=== PATIENT | female | born 1965 | race Caucasian/White ===

== ENCOUNTER → 2016-08-15 | Outpatient (CLI) | payer OTHER ==
[2016-08-15 08:58] LABS: CHLORIDE,CL 106 mmol/L (98-110); SODIUM,NA 141 mmol/L (136-146)
== END | disposition home or self-care (01) ==
LOC: MW.CHIM 08:07
PROVIDERS: ATTEND Internal Medicine
DX: I10 Essential (primary) hypertension (principal); E11.69 Type 2 diabetes mellitus with other specified complication; E78.5 Hyperlipidemia, unspecified
CPT/HCPCS: 36415; 80053; 80061; 83036; 85025

== ENCOUNTER → 2016-08-20 | Outpatient (CLI) | payer OTHER | END | disposition home or self-care (01) | LOC: MW.CHPM 12:22 | PROVIDERS: ATTEND Anesthesiology | DX: Z51.81 Encounter for therapeutic drug level monitoring (principal); Z79.899 Other long term (current) drug therapy | CPT/HCPCS: 80305 ==

== ENCOUNTER 2017-08-21 13:00 | Emergency (ER) | payer OTHER ==
--- NOTE | 2017-08-21 13:34 | EDM.PDOC ---
ED HPI GENERAL MEDICAL PROBLEM - General Chief Complaint: General Stated Complaint: FEELS OFF BALANCE Time Seen by Provider: 08/21/17 13:22 - History of Present Illness INITIAL COMMENTS - FREE TEXT/NARRATIVE: HISTORY AND PHYSICAL: History of present illness: Patient is 52-year-old white female with history of diabetes presents with a concern of not feeling well patient has a variety of nonspecific symptoms that she's had last hydration of similar episodes in the past she denies fever chills cough denies chest pain. Patient has had similar symptoms in the past and was diagnosed with vertigo she has had a complete workup including CT of her brain on multiple occasions. Review of systems: As per history of present illness and below otherwise all systems reviewed and negative. Past medical history: As per history of present illness and as reviewed below otherwise noncontributory. Surgical history: As per history of present illness and as reviewed below otherwise noncontributory. Social history: No reported history of drug or alcohol abuse. Family history: As per history of present illness and as reviewed below otherwise noncontributory. Physical exam: HEENT: Atraumatic, normocephalic, pupils reactive, negative for conjunctival pallor or scleral icterus, mucous membranes moist, throat clear, neck supple, nontender, trachea midline. Lungs: Clear to auscultation, breath sounds equal bilaterally, chest nontender. Heart: S1S2, regular, negative for clicks, rubs, or JVD. Abdomen: Soft, nondistended, nontender. Negative for masses or hepatosplenomegaly. Negative for costovertebral tenderness. Pelvis: Stable nontender. Genitourinary: Deferred. Rectal: Deferred. Extremities: Atraumatic, negative for cords or calf pain. Neurovascular unremarkable. Neuro: Awake, alert, oriented. Cranial nerves II through XII unremarkable. Cerebellum unremarkable. Motor and sensory unremarkable throughout. Exam nonfocal. Diagnostics: CBC CMP EKG chest x-ray Therapeutics: None Impression: #1 history diabetes #2 medical screening exam #3 history of vertigo Definitive disposition and diagnosis as appropriate pending reevaluation and review of above. Headache Pain Score (Numeric/FACES): 10 - Related Data Allergies Allergy/AdvReac Type Severity Reaction Status Date / Time codeine Allergy Nausea Verified 08/21/17 13:37 Sulfa (Sulfonamide Allergy Itching Verified 08/21/17 13:37 Antibiotics) Home Meds: Home Meds Simvastatin [Zocor] 40 mg PO DAILY 12/22/13 [History] metFORMIN [Glucophage] 1,000 mg PO BIDM 12/22/13 [History] Hydrocodone/Acetaminophen [Romayor 5-325] 1 tab PO BID PRN 04/07/14 [History] Valsartan [Diovan] 1 tab PO DAILY 08/25/15 [History] Insulin Glarg,Human.Rec.Analog [LantUS Solostar] 22 units SQ BEDTIME 10/10/15 [ History] Past Medical History Cardiovascular History: Reports: High Cholesterol, Hypertension Gastrointestinal History: Reports: GERD 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 ED EXAM, GENERAL - Physical Exam Exam: See Below (See dictation) Course - Vital Signs Last Recorded V/S: Last Vital Signs Temp 36.7 C 08/21/17 13:34 Pulse 79 08/21/17 13:34 Resp 18 08/21/17 13:34 BP 128/87 08/21/17 13:34 Pulse Ox 98 08/21/17 13:34 - Orders/Labs/Meds Orders: Active Orders 24 hr Category Date Time Status EKG Documentation Completion [RC] STAT Care 08/21/17 13:26 Active Chest 1V Frontal [CR] Stat Exams 08/21/17 13:27 Taken Labs: Laboratory Tests 08/21/17 08/21/17 Range/Units 13:37 13:37 WBC 6.69 (4.0-11.0) K/uL RBC 4.48 (4.30-5.90) M/uL Hgb 13.9 (12.0-16.0) g/dL Hct 41.4 (36.0-46.0) % MCV 92.4 (80.0-98.0) fL MCH 31.0 (27.0-32.0) pg MCHC 33.6 (31.0-37.0) g/dL RDW Std Deviation 50.2 (28.0-62.0) fl RDW Coeff of Vlad 15 (11.0-15.0) % Plt Count 316 (150-400) K/uL MPV 9.50 (7.40-12.00) fL Neut % (Auto) 69.4 (48.0-80.0) % Lymph % (Auto) 20.2 (16.0-40.0) % [place] % (Auto) 6.4 (0.0-15.0) % Eos % (Auto) 3.9 (0.0-7.0) % Baso % (Auto) 0.1 (0.0-1.5) % Neut # (Auto) 4.6 (1.4-5.7) K/uL Lymph # (Auto) 1.4 (0.6-2.4) K/uL [place] # (Auto) 0.4 (0.0-0.8) K/uL Eos # (Auto) 0.3 (0.0-0.7) K/uL Baso # (Auto) 0.0 (0.0-0.1) K/uL Nucleated RBC % 0.0 /100WBC Nucleated RBCs # 0 K/uL Sodium 142 (136-145) mmol/L Potassium 4.3 (3.5-5.1) mmol/L Chloride 107 (98-107) mmol/L Carbon Dioxide 25.1 (21.0-32.0) mmol/L BUN 17 (7.0-18.0) mg/dL Creatinine 0.7 (0.6-1.0) mg/dL Est Cr Clr Drug Dosing 76.00 mL/min Estimated GFR (MDRD) > 60.0 ml/min Glucose 94 (74-106) mg/dL Calcium 9.5 (8.5-10.1) mg/dL Total Bilirubin 0.9 (0.2-1.0) mg/dL AST 20 (15-37) IU/L ALT 37 (14-63) IU/L Alkaline Phosphatase 55 (46-116) U/L Troponin I < 0.050 (0.000-0.056) ng/mL Total Protein 7.0 (6.4-8.2) g/dL Albumin 3.7 (3.4-5.0) g/dL Globulin 3.3 (2.0-3.5) g/dL Albumin/Globulin Ratio 1.1 L (1.3-2.8) Departure - Departure Time of Disposition: 14:29 Disposition: Home, Self-Care 01 Condition: Good Clinical Impression: Encounter for medical screening examination, History of vertigo - Discharge Information Referrals: PCP,Unknown [Primary Care Provider] - Forms: ED Department Discharge Additional Instructions: The following information is given to patients seen in the emergency department who are being discharged to home. This information is to outline your options for follow-up care. We provide all patients seen in our emergency department with a follow-up referral. The need for follow-up, as well as the timing and circumstances, are variable depending upon the specifics of your emergency department visit. If you don't have a primary care physician on staff, we will provide you with a referral. We always advise you to contact your personal physician following an emergency department visit to inform them of the circumstance of the visit and for follow-up with them and/or the need for any referrals to a consulting specialist. The emergency department will also refer you to a specialist when appropriate. This referral assures that you have the opportunity for followup care with a specialist. All of these measure are taken in an effort to provide you with optimal care, which includes your followup. Under all circumstances we always encourage you to contact your private physician who remains a resource for coordinating your care. When calling for followup care, please make the office aware that this follow-up is from your recent emergency room visit. If for any reason you are refused follow-up, please contact the [facility] emergency department at and asked to speak to the emergency department charge nurse. Meclizine as prescribed continue current medications follow-up primary medical doctor call to schedule appointment and return as needed as discussed - My Orders Last 24 Hours: My Active Orders 08/21/17 13:26 EKG Documentation Completion [RC] STAT 08/21/17 13:27 Chest 1V Frontal [CR] Stat - Assessment/Plan Last 24 Hours: My Active Orders 08/21/17 13:26 EKG Documentation Completion [RC] STAT 08/21/17 13:27 Chest 1V Frontal [CR] Stat
[2017-08-21 14:15] LABS: CHLORIDE,CL 107 mmol/L (98-107); SODIUM,NA 142 mmol/L (136-145)
[2017-08-21 14:59] VITALS: BP 116/73
--- NOTE | 2017-08-22 10:26 | CR ---
EXAM DATE: 08/21/17 PATIENT'S AGE: 52 Patient: ELENI VASQUEZ Facility: [place], [place] Site . Site : [id number] Study: XRay Chest [id number] 2:19:12 PM Ordering Physician: Francesco Maldonado Final Report: Indication: Patient feels off balance Technique: Chest 1 view Comparison: May 17, 2014 Findings/Impression: Cardiovascular and mediastinum: Heart size and vasculature are normal in caliber and appearance. Mediastinum is within normal limits. Lungs and pleural space: Lungs are clear. No sign of infiltrate or mass. No sign of pleural effusion. No pneumothorax. Bones and soft tissues: No significant findings. Dictated by Chiara Trevino MD @ Aug 21 2017 2:35PM (Electronic Signature) Report Signed by Proxy. FAMILIA
== END 2017-08-21 14:56 | disposition home or self-care (01) ==
LOC: MW.ED 13:00
DX: R51 Headache (principal); E78.00 Pure hypercholesterolemia, unspecified; I10 Essential (primary) hypertension; E11.9 Type 2 diabetes mellitus without complications; Z88.5 Allergy status to narcotic agent; Z88.2 Allergy status to sulfonamides; Z79.899 Other long term (current) drug therapy; Z79.4 Long term (current) use of insulin
CPT/HCPCS: 36415; 71045; 71045-26; 80053; 84484; 85025; 99283; 99284-25

== ENCOUNTER 2019-02-12 12:43 | Emergency (ER) | payer SELFPAY ==
[2019-02-12 12:51] VITALS: BP 174/91; PULSE 83
--- NOTE | 2019-02-12 13:20 | EDM.PDOC ---
ED HPI GENERAL MEDICAL PROBLEM - General Chief Complaint: ENT Problem Stated Complaint: LEFT EAR PAIN Time Seen by Provider: 02/12/19 12:56 Source of Information: Reports: Patient History Limitations: Reports: No Limitations - History of Present Illness INITIAL COMMENTS - FREE TEXT/NARRATIVE: HISTORY AND PHYSICAL: History of present illness: Patient is a 53-year-old female presents to the ED today with concern of left- sided sinus pain and feeling like his backed up into her left ear. Patient states the symptoms have been ongoing for 2 weeks. Patient states she has a history of vertigo and noticed that once the sinus backed up into her ear her vertigo has been triggered more frequently. Patient states she has not taken anything for her symptoms. Patient states she has had a sinus infection in the past which feels similar to how she feels today. Patient denies any other symptoms or concerns. Patient denies fever, chills, chest pain, shortness of breath, or cough. Denies headache, neck stiff ness, change in vision, syncope, or near syncope. Denies nausea, vomiting, abdominal pain, diarrhea, constipation, or dysuria. Has not noted any blood in urine or stool. Patient has been eating and drinking appropriately. Review of systems: As per history of present illness and below otherwise all systems reviewed and negative. Past medical history: As per history of present illness and as reviewed below otherwise noncontributory. Surgical history: As per history of present illness and as reviewed below otherwise noncontributory. Social history: See social history for further information Family history: As per history of present illness and as reviewed below otherwise noncontributory. Physical exam: General: Patient is alert, oriented, and in no acute distress. Patient sitting comfortably on exam table. HEENT: Atraumatic, normocephalic, pupils equal and reactive bilaterally, negative for conjunctival pallor or scleral icterus, mucous membranes moist, TMs normal bilaterally, throat clear, neck supple, nontender, trachea midline. No drooling or trismus noted. No meningeal signs. No hot potato voice noted. Patient has moderate pain with palpation of the left maxillary sinus. Lungs: Clear to auscultation, breath sounds equal bilaterally, chest nontender. Heart: S1S2, regular rate and rhythm without overt murmur Abdomen: Soft, nondistended, nontender. Negative for masses or hepatosplenomegaly. Negative for costovertebral tenderness. Pelvis: Stable nontender. Genitourinary: Deferred. Rectal: Deferred. Skin: Intact, warm, dry. No lesions or rashes noted. Extremities: Atraumatic, negative for cords or calf pain. Neurovascular unremarkable. Neuro: Awake, alert, oriented. Cranial nerves II through XII unremarkable. Cerebellum unremarkable. Motor and sensory unremarkable throughout. Exam nonfocal. Notes: Discussed the importance for follow-up with a primary care provider. Voices understanding and is agreeable to plan of care. Denies any further questions or concerns at this time. Diagnostics: None Therapeutics: None Prescription: Augmentin Impression: Acute maxillary sinusitis, left Plan: 1. Take medication as prescribed. Use [id number] Flonase as discussed and as directed. 2. You can alternate ibuprofen and Tylenol as directed for pain and discomfort. 3. Follow up with her primary care provider as discussed. Return to the ED as needed and as discussed. Definitive disposition and diagnosis as appropriate pending reevaluation and review of above. 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: Endocrine/Metabolic History: Reports: Diabetes, Type II - Infectious Disease History Infectious Disease History: Reports: Chicken Pox, Measles, Mumps - Past Surgical History HEENT Surgical History: Reports: Tonsillectomy Other HEENT Surgeries/Procedures: nasal surgery x2 GI Surgical History: Reports: Cholecystectomy, Hernia Repair/Other Female Surgical History: Reports: Hysterectomy Other Musculoskeletal Surgeries/Procedures:: carpal tunnel surgery Social & Family History - Family History Family Medical History: Noncontributory - Tobacco Use Smoking Status *Q: Unknown Ever Smoked - Recreational Drug Use Recreational Drug Use: No ED ROS GENERAL - Review of Systems Review Of Systems: ROS reveals no pertinent complaints other than HPI. ED EXAM, GENERAL - Physical Exam Exam: See Below (See dictation) Course - Vital Signs Last Recorded V/S: Last Vital Signs Temp 35.6 C 02/12/19 12:49 Pulse 83 02/12/19 12:49 Resp 18 02/12/19 12:49 BP 174/91 H 02/12/19 12:49 Pulse Ox 99 02/12/19 12:49 Departure - Departure Time of Disposition: 13:20 Disposition: Home, Self-Care 01 Clinical Impression: Maxillary sinusitis, acute Qualifiers: Recurrence: not specified as recurrent Qualified Code(s): J01.00 - Acute maxillary sinusitis, unspecified - Discharge Information Prescriptions: Amoxicillin/Potassium Clav [Augmentin 875-125 Tablet] 1 each PO BID 7 Days #14 tablet Referrals: Tyson Leavitt MD [Primary Care Provider] - Forms: ED Department Discharge Additional Instructions: The following information is given to patients seen in the emergency department who are being discharged to home. This information is to outline your options for follow-up care. We provide all patients seen in our emergency department with a follow-up referral. The need for follow-up, as well as the timing and circumstances, are variable depending upon the specifics of your emergency department visit. If you don't have a primary care physician on staff, we will provide you with a referral. We always advise you to contact your personal physician following an emergency department visit to inform them of the circumstance of the visit and for follow-up with them and/or the need for any referrals to a consulting specialist. The emergency department will also refer you to a specialist when appropriate. This referral assures that you have the opportunity for follow-up care with a specialist. All of these measure are taken in an effort to provide you with optimal care, which includes your follow-up. Under all circumstances we always encourage you to contact your private physician who remains a resource for coordinating your care. When calling for follow-up care, please make the office aware that this follow-up is from your recent emergency room visit. If for any reason you are refused follow-up, please contact the [facility] Emergency Department at and asked to speak to the emergency department charge nurse. [facility] [address] [place] [address] [facility] [address] [place] [address] 1. Take medication as prescribed. Use [id number] Flonase as discussed and as directed. 2. You can alternate ibuprofen and Tylenol as directed for pain and discomfort. 3. Follow up with her primary care provider as discussed. Return to the ED as needed and as discussed.
== END 2019-02-12 13:45 | disposition home or self-care (01) ==
LOC: MW.ED 12:43
DX: J01.00 Acute maxillary sinusitis, unspecified (principal); E11.9 Type 2 diabetes mellitus without complications; I10 Essential (primary) hypertension; Z88.5 Allergy status to narcotic agent; Z88.2 Allergy status to sulfonamides; Z79.84 Long term (current) use of oral hypoglycemic drugs; Z79.899 Other long term (current) drug therapy; Z98.890 Other specified postprocedural states; Z90.49 Acquired absence of other specified parts of digestive tract; Z90.710 Acquired absence of both cervix and uterus
CPT/HCPCS: 99282; 99283

== ENCOUNTER 2019-12-20 22:13 | Emergency (ER) | payer OTHER ==
[2019-12-20] MEDS ORDERED: Sodium Chloride 0.9% 2.5 ML Syringe FLUSH PRN (22:38)
[2019-12-20] MEDS ORDERED: Sodium Chloride 0.9% 10 ML Syringe FLUSH PRN (22:38)
[2019-12-20] MEDS ORDERED: Sodium Chloride 0.9% 1,000 ML IV ONE (22:41)
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
[2019-12-20] MEDS ORDERED: Ondansetron 4 MG/2 ML SDV IVPUSH ONE (22:46)
[2019-12-20] MEDS ORDERED: fentaNYL 50 MCG/ML SDV IVPUSH ONE (22:46)
[2019-12-20 23:30] LABS: CARBON DIOXIDE,CO2 26.8 mmol/L (21.0-32.0); POTASSIUM,K 4.4 mmol/L (3.5-5.1)
[2019-12-21] MEDS ORDERED: Iopamidol 755 Mg/ML 100 ML Bottle IVPUSH ONE (00:03)
--- NOTE | 2019-12-21 00:50 | CT ---
INDICATION: Right lower quadrant pain TECHNIQUE: Axial images were obtained from the diaphragm to the pubic symphysis. Reformats were obtained in the coronal and sagittal plane. IV Contrast: 100 cc Isovue 370 Oral Contrast: None COMPARISON: Abdomen and pelvis CT 02/09/2014 FINDINGS: Lower chest: Right middle lobe pulmonary nodule measuring 3 millimeters (201, 4). In a high-risk patient, follow-up chest CT recommended in 12 months. Stable 3 millimeter right lower lobe pulmonary nodule. Liver: Unremarkable. Normal in size and attenuation. No masses. Gallbladder and bile ducts: Gallbladder is not seen suggesting prior cholecystectomy. Spleen: Unremarkable. Normal in size without mass. Pancreas: 7 millimeter low-density lesion at the pancreatic head which measures near water density (201, 50). Adrenal glands: Unremarkable. No nodules. Kidneys: Unremarkable. No masses, stones, or hydronephrosis. Vasculature: Unremarkable. GI tract: No dilated loops of large or small intestine. Unremarkable appendix. Pelvis: Bladder unremarkable. Status post hysterectomy. No adnexal mass. Bones: Slight decreased height of the L1 vertebral body consistent with an old compression fracture. Mild degenerative disc disease lumbar spine. IMPRESSION: 1. No dilated bowel or localized inflammation. Unremarkable appendix. 2. Low-density lesion in the pancreatic head measuring 7 millimeters. Appearance would favor a lesion such as a pancreatic cyst or side branch IPMN. Follow-up CT scan in 12 months suggested. 3. Other incidental findings as detailed above. Please note that all CT scans at this facility use dose modulation, iterative reconstruction, and/or weight-based dosing when appropriate to reduce radiation dose to as low as reasonably achievable. Dictated by Pavan Dudley MD @ Dec 21 2019 12:34AM Signed by Dr. Pavan Dudley @ Dec 21 2019 12:49AM
[2019-12-21 01:17] VITALS: BP 150/77; PULSE 80
== END 2019-12-21 01:16 | disposition home or self-care (01) ==
LOC: MW.ED 22:13
DX: R10.31 Right lower quadrant pain (principal); K21.9 Gastro-esophageal reflux disease without esophagitis; E11.9 Type 2 diabetes mellitus without complications; I10 Essential (primary) hypertension; F17.210 Nicotine dependence, cigarettes, uncomplicated; Z79.84 Long term (current) use of oral hypoglycemic drugs; Z88.5 Allergy status to narcotic agent; Z88.2 Allergy status to sulfonamides; Z79.899 Other long term (current) drug therapy
CPT/HCPCS: 36415; 74177; 80053; 81001; 83605; 83690; 85025; 96374; 96375; 99284; J2405; J3010; J7030; Q9967; 99283

== ENCOUNTER 2020-01-02 14:13 | Emergency (ER) | payer OTHER ==
--- NOTE | 2020-01-02 14:29 | EDM.PDOC ---
ED HPI GENERAL MEDICAL PROBLEM - General Chief Complaint: General Stated Complaint: HEAD AND NECK SORE Time Seen by Provider: 01/02/20 14:17 Source of Information: Reports: Patient History Limitations: Reports: No Limitations - History of Present Illness INITIAL COMMENTS - FREE TEXT/NARRATIVE: 54 yo F with history of diabetes, GERD woke up at 430 this morning with right- sided neck pain that radiates to the right scalp. Neck pain is worse with head turning, is constant, radiates to the right temporal scalp, neck pain is rated 10/10. Headache is rated 3/10. Associated with nausea, anterior chest "burning "for 1 hour. She denies fever, chills, vomiting, shortness of breath. She also notes abdominal pain which she attributes to her nausea. ROS: A 10-point review of systems, other than pertinent positives and negatives as stated per HPI, is otherwise negative Past medical history: No additional pertinent history Past Surgical history: No additional pertinent history Social history: No additional pertinent history Family history: No additional pertinent history PHYSICAL EXAM General: AOx4, GCS = 15, moderate distress HEENT: dry mucous membrane Neck: supple, no meningismus, no Kernig or Brudzinski Cardiac: S1S2 RRR Respiratory: CTAB, no crackles or rales, no wheezing Abdomen: Soft, epigastric/suprapubic tenderness/left CVAT. No rebound or guarding, nondistended, no pulsatile mass. Back: nontender to C spine. Right trapezius tender to palpation and spasm. Musculoskeletal: NVI distally, no deformity Neuro: No focal deficits, CN 2 - 12 WNL. head/neck Pain Score (Numeric/FACES): 10 - Related Data Allergies Allergy/AdvReac Type Severity Reaction Status Date / Time codeine Allergy Nausea Verified 01/02/20 14:33 Sulfa (Sulfonamide Allergy Itching Verified 01/02/20 14:33 Antibiotics) sulfur dioxide Allergy Itching Verified 01/02/20 14:33 Home Meds: Home Meds metFORMIN [Glucophage] 1,000 mg PO BIDM 12/22/13 [History] Latanoprost 1 drop DAILY 02/12/19 [History] Meclizine [Antivert] 25 mg PO DAILY 12/20/19 [History] Ibuprofen [Motrin] 800 mg PO QID PRN #30 tab 01/02/20 [Rx] Non-Formulary Medication [NF Drug] 1 each INH BEDTIME 01/02/20 [History] carisoprodoL [Soma] 250 mg PO BID #10 tablet 01/02/20 [Rx] Past Medical History HEENT History: Reports: Glaucoma, Impaired Vision, Other (See Below) Other HEENT History: wears glasses Cardiovascular History: Reports: High Cholesterol, Hypertension Gastrointestinal History: Reports: GERD Genitourinary History: Reports: None [employer]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: Musculoskeletal History: Reports: Back Pain, Chronic Psychiatric History: Reports: Depression Endocrine/Metabolic History: Reports: Diabetes, Type II - Infectious Disease History Infectious Disease History: Reports: Chicken Pox, Measles - Past Surgical History HEENT Surgical History: Reports: Tonsillectomy Other HEENT Surgeries/Procedures: nasal surgery x2 Cardiovascular Surgical History: Reports: None GI Surgical History: Reports: Cholecystectomy, Hernia Repair/Other Female Surgical History: Reports: Hysterectomy Endocrine Surgical History: Reports: None Other Musculoskeletal Surgeries/Procedures:: carpal tunnel surgery Social & Family History - Family History Family Medical History: Noncontributory - Caffeine Use Caffeine Use: Reports: Energy Drinks ED ROS GENERAL - Review of Systems Review Of Systems: Comprehensive ROS is negative, except as noted in HPI. ED EXAM, GENERAL - Physical Exam Exam: See Below (see dictation) EKG INTERPRETATION EKG Interpretation Comments: 55 Bpm, NSR, normal QRS interval, no STEMI. EKG and rhythm strip interpreted by me at 1506 Course - Vital Signs Last Recorded V/S: Last Vital Signs Temp 98.3 F 01/02/20 14:32 Pulse 80 01/02/20 16:55 Resp 16 01/02/20 16:55 BP 147/88 H 01/02/20 16:55 Pulse Ox 96 01/02/20 16:55 - Orders/Labs/Meds Orders: Active Orders 24 hr Category Date Time Status Cardiac Monitoring [RC] . DIRECTED Care 01/02/20 14:51 Active EKG Documentation Completion [RC] STAT Care 01/02/20 14:52 Active Sodium Chloride 0.9% [Saline Flush] Med 01/02/20 14:51 Active 10 ml FLUSH ASDIRECTED PRN Sodium Chloride 0.9% [Saline Flush] Med 01/02/20 14:51 Active 2.5 ml FLUSH ASDIRECTED PRN Saline Lock Insert [OM.PC] Stat Oth 01/02/20 14:51 Ordered Medication Orders Sodium Chloride (Saline Flush) 10 ml FLUSH ASDIRECTED PRN PRN Reason: Keep Vein Open Last Admin: 01/02/20 15:16 Dose: 10 ml Documented by: LINDSAY Sodium Chloride (Saline Flush) 2.5 ml FLUSH ASDIRECTED PRN PRN Reason: Keep Vein Open Last Admin: 01/02/20 15:16 Dose: 2.5 ml Documented by: LINDSAY Labs: Laboratory Tests 01/02/20 01/02/20 01/02/20 Range/Units 15:10 15:10 15:10 WBC 9.14 (4.0-11.0) K/uL RBC 4.09 L (4.30-5.90) M/uL Hgb 12.7 (12.0-16.0) g/dL Hct 38.5 (36.0-46.0) % MCV 94.1 (80.0-98.0) fL MCH 31.1 (27.0-32.0) pg MCHC 33.0 (31.0-37.0) g/dL RDW Std Deviation 45.8 (28.0-62.0) fl RDW Coeff of Vlad 13 (11.0-15.0) % Plt Count 220 (150-400) K/uL MPV 10.00 (7.40-12.00) fL Neut % (Auto) 83.5 H (48.0-80.0) % Lymph % (Auto) 8.2 L (16.0-40.0) % [place] % (Auto) 7.2 (0.0-15.0) % Eos % (Auto) 0.9 (0.0-7.0) % Baso % (Auto) 0.2 (0.0-1.5) % Neut # (Auto) 7.6 H (1.4-5.7) K/uL Lymph # (Auto) 0.8 (0.6-2.4) K/uL [place] # (Auto) 0.7 (0.0-0.8) K/uL Eos # (Auto) 0.1 (0.0-0.7) K/uL Baso # (Auto) 0.0 (0.0-0.1) K/uL Nucleated RBC % 0.0 /100WBC Nucleated RBCs # 0 K/uL APTT (18.6-31.3) SEC Lactate 1.1 (0.20-2.00) mmol/L Sodium 136 (136-145) mmol/L Potassium 3.7 (3.5-5.1) mmol/L Chloride 102 (98-107) mmol/L Carbon Dioxide 23.7 (21.0-32.0) mmol/L BUN 16 (7.0-18.0) mg/dL Creatinine 0.9 (0.6-1.0) mg/dL Est Cr Clr Drug Dosing 55.20 mL/min Estimated GFR (MDRD) > 60.0 ml/min Glucose 113 H (74-106) mg/dL Calcium 8.5 (8.5-10.1) mg/dL Total Bilirubin 1.3 H (0.2-1.0) mg/dL AST 16 (15-37) IU/L ALT 22 (14-63) IU/L Alkaline Phosphatase 69 (46-116) U/L Troponin I < 0.050 (0.000-0.056) ng/mL Total Protein 7.1 (6.4-8.2) g/dL Albumin 3.7 (3.4-5.0) g/dL Globulin 3.4 (2.6-4.0) g/dL Albumin/Globulin Ratio 1.1 (0.9-1.6) Lipase 114 (73-393) U/L Urine Color Urine Appearance Urine pH (5.0-8.0) Ur Specific [place] (1.001-1.035) Urine Protein (NEGATIVE) mg/dL Urine Glucose (UA) (NEGATIVE) mg/dL Urine Ketones (NEGATIVE) mg/dL Urine Occult Blood (NEGATIVE) Urine Nitrite (NEGATIVE) Urine Bilirubin (NEGATIVE) Urine Urobilinogen (<2.0) EU/dL Ur Leukocyte Esterase (NEGATIVE) Urine RBC (0-2/HPF) Urine WBC (0-5/HPF) Ur Epithelial Cells (NONE-FEW) Urine Bacteria (NEGATIVE) 01/02/20 01/02/20 Range/Units 15:10 16:39 WBC (4.0-11.0) K/uL RBC (4.30-5.90) M/uL Hgb (12.0-16.0) g/dL Hct (36.0-46.0) % MCV (80.0-98.0) fL MCH (27.0-32.0) pg MCHC (31.0-37.0) g/dL RDW Std Deviation (28.0-62.0) fl RDW Coeff of Vlad (11.0-15.0) % Plt Count (150-400) K/uL MPV (7.40-12.00) fL Neut % (Auto) (48.0-80.0) % Lymph % (Auto) (16.0-40.0) % [place] % (Auto) (0.0-15.0) % Eos % (Auto) (0.0-7.0) % Baso % (Auto) (0.0-1.5) % Neut # (Auto) (1.4-5.7) K/uL Lymph # (Auto) (0.6-2.4) K/uL [place] # (Auto) (0.0-0.8) K/uL Eos # (Auto) (0.0-0.7) K/uL Baso # (Auto) (0.0-0.1) K/uL Nucleated RBC % /100WBC Nucleated RBCs # K/uL APTT 28.0 (18.6-31.3) SEC Lactate (0.20-2.00) mmol/L Sodium (136-145) mmol/L Potassium (3.5-5.1) mmol/L Chloride (98-107) mmol/L Carbon Dioxide (21.0-32.0) mmol/L BUN (7.0-18.0) mg/dL Creatinine (0.6-1.0) mg/dL Est Cr Clr Drug Dosing mL/min Estimated GFR (MDRD) ml/min Glucose (74-106) mg/dL Calcium (8.5-10.1) mg/dL Total Bilirubin (0.2-1.0) mg/dL AST (15-37) IU/L ALT (14-63) IU/L Alkaline Phosphatase (46-116) U/L Troponin I (0.000-0.056) ng/mL Total Protein (6.4-8.2) g/dL Albumin (3.4-5.0) g/dL Globulin (2.6-4.0) g/dL Albumin/Globulin Ratio (0.9-1.6) Lipase (73-393) U/L Urine Color YELLOW Urine Appearance HAZY Urine pH 5.5 (5.0-8.0) Ur Specific [place] 1.015 (1.001-1.035) Urine Protein NEGATIVE (NEGATIVE) mg/dL Urine Glucose (UA) NEGATIVE (NEGATIVE) mg/dL Urine Ketones NEGATIVE (NEGATIVE) mg/dL Urine Occult Blood NEGATIVE (NEGATIVE) Urine Nitrite NEGATIVE (NEGATIVE) Urine Bilirubin NEGATIVE (NEGATIVE) Urine Urobilinogen 0.2 (<2.0) EU/dL Ur Leukocyte Esterase TRACE H (NEGATIVE) Urine RBC 0-2 (0-2/HPF) Urine WBC 0-4 (0-5/HPF) Ur Epithelial Cells RARE (NONE-FEW) Urine Bacteria FEW (NEGATIVE) Meds: Medications Generic Name Dose Route Start Last Admin Trade Name Frediana PRN Reason Stop Dose Admin Sodium Chloride 10 ml 01/02/20 14:51 01/02/20 15:16 Saline Flush FLUSH 10 ml ASDIRECTED PRN Administration Keep Vein Open Sodium Chloride 2.5 ml 01/02/20 14:51 01/02/20 15:16 Saline Flush FLUSH 2.5 ml ASDIRECTED PRN Administration Keep Vein Open Discontinued Medications Generic Name Dose Route Start Last Admin Trade Name Freq PRN Reason Stop Dose Admin Al Hydroxide/Mg Hydroxide 15 0 ml 01/02/20 14:56 01/02/20 15:16 ml/ Lidocaine HCl 5 ml PO 01/02/20 14:57 1 each ONETIME ONE Administration Diphenhydramine HCl 50 mg 01/02/20 14:51 01/02/20 15:14 Benadryl IVPUSH 01/02/20 14:52 50 mg ONETIME ONE Administration Lactated Ringer's 1,000 mls @ 999 mls/hr 01/02/20 14:51 01/02/20 15:10 Ringers, Lactated IV 01/02/20 15:51 999 mls/hr .BOLUS ONE Administration Ketorolac Tromethamine 30 mg 01/02/20 16:38 01/02/20 17:01 Toradol IVPUSH 01/02/20 16:39 30 mg ONETIME ONE Administration Metoclopramide HCl 10 mg 01/02/20 14:51 01/02/20 15:15 Reglan IVPUSH 01/02/20 14:52 10 mg ONETIME ONE Administration - Re-Assessments/Exams Free Text/Narrative Re-Assessment/Exam: 01/02/20 17:34 After IV toradol treatment and observation in the ER, her pain improved and she is currently stable for discharge. I performed a repeat exam and did not appreciate new abnormal findings. Patient exhibits normal vital signs and has a normal gait on road test. I advised the patient to return to the ER for reevaluation if symptoms worsened, including fever, worsening pain, or any other worrisome symptoms. I instructed the patient to follow up with their PCP within 2-3 days. MEDICAL DECISION MAKING: I reviewed the patients past medical records, lab and radiographic findings. I discussed the case with the patient. My differential diagnosis included: Patient's chief complaint is right trapezius pain that radiates to the right scalp. She did mention that she has some chest discomfort and abdominal discomfort and everything hurts. Her EKG and troponin were unremarkable, I do not suspect ACS or atypical chest pain. CAT scan of her abdomen did not reveal any underlying abnormalities. She did not demonstrate pancreatitis or leukocytosis or any signs of infection. She had no focal numbness or weakness on my exam, NIHSS = 0, CT head was unremarkable, I do not suspect underlying intracranial process warranting further imaging studies. Her pain improved after Toradol, consistent for musculoskeletal strain. Departure - Departure Time of Disposition: 17:35 Disposition: Home, Self-Care 01 Condition: Good Clinical Impression: Trapezius muscle spasm - Discharge Information *PRESCRIPTION DRUG MONITORING PROGRAM REVIEWED*: Not Applicable *COPY OF PRESCRIPTION DRUG MONITORING REPORT IN PATIENT SHABNAM: Not Applicable Prescriptions: Ibuprofen [Motrin] 800 mg PO QID PRN #30 tab PRN Reason: Pain (Moderate 4-6) carisoprodoL [Soma] 250 mg PO BID #10 tablet Instructions: Muscle Cramps and Spasms, [id number], Cervicogenic Headache Referrals: Tyson Leavitt MD [Primary Care Provider] - 3 Days Forms: ED Department Discharge Additional Instructions: The need for follow-up, as well as the timing and circumstances, are variable depending upon the specifics of your emergency department visit. If you don't have a primary care physician on staff, we will provide you with a referral. We always advise you to contact your personal physician following an emergency department visit to inform them of the circumstance of the visit and for follow-up with them and/or the need for any referrals to a consulting specialist. The emergency department will also refer you to a specialist when appropriate. This referral assures that you have the opportunity for follow-up care with a specialist. All of these measure are taken in an effort to provide you with optimal care, which includes your follow-up. Under all circumstances we always encourage you to contact your private physician who remains a resource for coordinating your care. When calling for follow-up care, please make the office aware that this follow-up is from your recent emergency room visit. If for any reason you are refused follow-up, please contact the [facility] Emergency Department at and asked to speak to the emergency department charge nurse. If you do not have a primary care doctor, please follow up with the clinics below within 3-5 days. [facility] [address] [place] [id number] [id number] Sepsis Event Note (ED) - Focused Exam Vital Signs: Vital Signs Temp Pulse Resp BP Pulse Ox 01/02/20 16:55 80 16 147/88 H 96 08/01/20 16:06 77 17 134/79 96 01/02/20 14:32 98.3 F 74 17 154/85 H 96 - My Orders Last 24 Hours: My Active Orders 01/02/20 14:51 Cardiac Monitoring [RC] . DIRECTED Sodium Chloride 0.9% [Saline Flush] 10 ml FLUSH ASDIRECTED PRN Sodium Chloride 0.9% [Saline Flush] 2.5 ml FLUSH ASDIRECTED PRN Saline Lock Insert [OM.PC] Stat 01/02/20 14:52 EKG Documentation Completion [RC] STAT - Assessment/Plan Last 24 Hours: My Active Orders 01/02/20 14:51 Cardiac Monitoring [RC] . DIRECTED Sodium Chloride 0.9% [Saline Flush] 10 ml FLUSH ASDIRECTED PRN Sodium Chloride 0.9% [Saline Flush] 2.5 ml FLUSH ASDIRECTED PRN Saline Lock Insert [OM.PC] Stat 01/02/20 14:52 EKG Documentation Completion [RC] STAT
[2020-01-02] MEDS ORDERED: Sodium Chloride 0.9% 2.5 ML Syringe FLUSH PRN (14:51)
[2020-01-02] MEDS ORDERED: Lactated Ringers 1,000 ML IV ONE (14:51)
[2020-01-02] MEDS ORDERED: Metoclopramide 10 MG/2 ML SDV IVPUSH ONE (14:51)
[2020-01-02] MEDS ORDERED: diphenhydrAMINE 50 MG/ML SDV IVPUSH ONE (14:51)
[2020-01-02] MEDS ORDERED: Sodium Chloride 0.9% 10 ML Syringe FLUSH PRN (14:51)
[2020-01-02] MEDS ORDERED: Alum Hydrox/Mag Hydrox/Simeth 15 ML, Lidocaine 2% 5 ML PO ONE ×2 (14:56)
[2020-01-02 15:46] LABS: BLOOD UREA NITROGEN,BUN 16 mg/dL (7.0-18.0); CARBON DIOXIDE,CO2 23.7 mmol/L (21.0-32.0); CHLORIDE,CL 102 mmol/L (98-107); GLUCOSE RANDOM 113 mg/dL (74-106); LIPASE 114 U/L (73-393); POTASSIUM,K 3.7 mmol/L (3.5-5.1); SODIUM,NA 136 mmol/L (136-145)
--- NOTE | 2020-01-02 16:00 | CT ---
INDICATION: Head pain. Patient states that she is not sure if she fell and hit the head last night. COMPARISON: None available. TECHNIQUE: CT examination of the head was performed with 3 mm thick axial, sagittal, and coronal sections without intravenous contrast. Images were obtained from the vertex of the skull through the skull base, and I examined the images with the brain and bone windows. Please note that all CT scans at this facility use dose modulation, iterative reconstruction, and/or weight-based dosing when appropriate to reduce radiation dose to as low as reasonably achievable. FINDINGS: : The brain is normal in appearance for the patient`s age on today`s study, with no sign of mass lesion, mass effect, hemorrhage, or edema. The ventricles and sulci are normal in appearance for the patient`s age. Incidental note is made of a partially empty sella, a common finding in a patient of this age. The visualized portions of the orbits are normal in appearance. The visualized portions of the paranasal sinuses and mastoids are clear. The osseous structures are normal in their appearance with no sign of abnormality in the skull base or calvarium. IMPRESSION: No sign of closed head injury. Normal noncontrast CT of the head for the patient`s age. Please note that all CT scans at this facility use dose modulation, iterative reconstruction, and/or weight-based dosing when appropriate to reduce radiation dose to as low as reasonably achievable. Dictated by Agustin Abarca MD @ Jan 02 2020 3:55PM Signed by Dr. Agustin Abarca @ Jan 02 2020 3:58PM
--- NOTE | 2020-01-02 16:07 | CT ---
TECHNIQUE: Noncontrast CT abdomen and pelvis. INDICATION: Abdominal pain. COMPARISON: 12/20/[address] FINDINGS: The liver, spleen, pancreas, adrenal glands, and kidneys are unremarkable. No bowel obstruction. Gallbladder has been removed. No biliary dilation. The low-density lesion identified in the pancreatic head on the prior exam is poorly visualized today due to lack of IV contrast. Appendix is tucked under the cecum and appears normal. No adenopathy, free air, or free fluid. Previously seen 3 mm lung base nodules are unchanged. IMPRESSION: 1. No acute findings. 2. Previously seen subcentimeter low-attenuation pancreatic head lesion poorly visualized on this exam due to lack of IV contrast. 3. 3 mm pulmonary nodules in the lung bases are unchanged. Dictated by Alfredo Hinton MD @ 01/02/2020 4:05:39 PM Please note that all CT scans at this facility use dose modulation, iterative reconstruction, and/or weight-based dosing when appropriate to reduce radiation dose to as low as reasonably achievable. Dictated by: Alfredo Hinton MD @ 01/02/2020 16:05:47 (Electronically Signed)
[2020-01-02] MEDS ORDERED: Ketorolac 30 MG/ML SDV IVPUSH ONE (16:38)
--- NOTE | 2020-01-02 16:38 | CR ---
INDICATION: Chest pressure TECHNIQUE: Chest 1 view. COMPARISON: None FINDINGS: Heart is normal in size. The pulmonary vasculature is within limits. The lungs are clear. IMPRESSION: No acute process. Dictated by Meera Villavicencio MD @ 01/02/2020 4:37:24 PM Dictated by: Meera Villavicencio MD @ 01/02/2020 16:37:34 (Electronically Signed)
[2020-01-02 16:55] VITALS: BP 147/88; PULSE 80
== END 2020-01-02 17:56 | disposition home or self-care (01) ==
LOC: MW.ED 14:13
DX: M62.838 Other muscle spasm (principal); I10 Essential (primary) hypertension; E11.9 Type 2 diabetes mellitus without complications; Z88.5 Allergy status to narcotic agent; Z88.2 Allergy status to sulfonamides; Z79.84 Long term (current) use of oral hypoglycemic drugs; Z79.899 Other long term (current) drug therapy
CPT/HCPCS: 70450; 71045; 74176; 80053; 81001; 83605; 83690; 84484; 85025; 85730; 93005; 96374; 96375; 99284; A9270; J1200; J1885; J2765; J7120

== ENCOUNTER 2020-04-17 15:03 | Emergency (ER) | payer MEDICAID, OTHER ==
[2020-04-17] MEDS ORDERED: Sodium Chloride 0.9% 1,000 ML IV ONE (15:25)
[2020-04-17] MEDS ORDERED: Ondansetron 4 MG/2 ML SDV IVPUSH ONE (15:44)
--- NOTE | 2020-04-17 15:44 | EDM.PDOC ---
ED HPI GENERAL MEDICAL PROBLEM - General Chief Complaint: Gastrointestinal Problem Stated Complaint: DIARRHEA, POSSIBLE COVID Time Seen by Provider: 04/17/20 15:24 Source of Information: Reports: Patient History Limitations: Reports: No Limitations - History of Present Illness INITIAL COMMENTS - FREE TEXT/NARRATIVE: HISTORY AND PHYSICAL: History of present illness: Patient is a 55-year-old female who presents to the emergency room with concern she may have COVID-19. She states over the past few days she has had nausea, fever/chills, diarrhea and fatigue. She states she works for the [employer] and is frequently exposed to persons who are ill. She has also had several family members who have tested positive for COVID-19. Patient denies any headache, change in vision, syncope or near syncope. Denies any chest pain, back pain, shortness of breath or cough. Denies any vomiting, constipation or dysuria. Has not noted any blood in urine or stool. Patient has been eating and drinking appropriately. She states she is concerned she could be dehydrated as she is "unable to keep up" with the amount of diarrhea she has been having. Review of systems: As per history of present illness and below otherwise all systems reviewed and negative. Past medical history: As per history of present illness and as reviewed below otherwise noncontributory. Surgical history: As per history of present illness and as reviewed below otherwise noncontributory. Social history: See social history for further information Family history: As per history of present illness and as reviewed below otherwise noncontributory. Physical exam: General: Well developed and well nourished 55-year-old female. Alert and orientated x 3. Nontoxic in appearance and in no acute distress. Vital signs are stable and have been reviewed by me. Nursing notes were reviewed. HEENT: Atraumatic, normocephalic, pupils equal and reactive bilaterally, negative for conjunctival pallor or scleral icterus, mucous membranes moist, TMs normal bilaterally, throat clear, neck supple, nontender, trachea midline. No drooling or trismus noted. No meningeal signs. No hot potato voice noted. Lungs: Clear to auscultation, breath sounds equal bilaterally, chest nontender. Normal work of breathing, no accessory muscles used. Heart: S1S2, regular rate and rhythm without overt murmur Abdomen: Soft, nondistended, nontender. Negative for masses or hepatosplenomegaly. Negative for costovertebral tenderness. Skin: Intact, warm, dry. No lesions or rashes noted. Hematologic: No petechiae or purpra. Mucosa appropriate color and normal nail bed color and refill. Extremities: Atraumatic, moves all extremities per self without difficulty or deficits, negative for cords or calf pain. Neurovascular unremarkable. Neuro: Awake, alert, oriented. Cranial nerves II through XII unremarkable. Cerebellum unremarkable. Motor and sensory unremarkable throughout. Exam nonfocal. Psychiatric: Mood and affect are appropriate. Normal thought process. Answering questions appropriately. Notes: Patient's serum lab work is unremarkable. She has an ampule to give us a urine or stool sample. I did offer to keep her here until she was able to give a sample so we could do stool studies/urinalysis. She does not feel she is going to be able to give a sample now prefer to be discharged home. She seems upset that her COVID-19 screening is negative, I did inform her that the send out would be ran by the [facility] and she should have results within the next few days if that is positive. I encouraged her to stay at home until she has these results. Reassessment at the time of disposition demonstrates that the patient is in no acute distress. The patient is stable for discharge, counseling was provided and we discussed in great detail signs and symptoms that would prompt them to return to the Emergency Department. Medication, follow up and supportive care measures were reviewed and discussed. Voices understanding and is agreeable to plan of care. Denies any further questions or concerns at this time. Diagnostics: CBC, CMP, lipase, UA, COVID-19, stool studies Therapeutics: IV fluid, Zofran Prescription: Zofran Stool study/supplies Impression: Diarrhea Plan: 1. Your COVID-19 screening is negative. If you are not in close contact to someone who is positive, you should continue to practice physical distancing and limit your interactions with others as much as possible. You may attend work and attend/perform essential activities if you are not sick. If you continue to feel unwell please stay home. If you are in close contact with someone who tested positive, then you should continue to quarantine until you complete 10 days. COVID-19 testing is not 100% accurate, we did do a SEND OUT TEST which goes to the state lab for further testing. If this is positive they will call you to inform you; this should be done by Saturday. 2. [place] diet; advance as tolerated. (Bananas, rice, toast, applesauce, ect...) Zofran as needed for nausea managment. You can take NyQuil during the evening to help get a restful night sleep. Alternate Tylenol and ibuprofen as needed for pain and fever management. 3. Follow up with your primary care provider for re-evaluation and if your symptoms should worsen, new symptoms develop or you feel like you are not improving you are always welcome to return to the emergency room. Definitive disposition and diagnosis as appropriate pending reevaluation and review of above. - Related Data Allergies Allergy/AdvReac Type Severity Reaction Status Date / Time codeine Allergy Nausea Verified 01/02/20 14:33 Sulfa (Sulfonamide Allergy Itching Verified 01/02/20 14:33 Antibiotics) sulfur dioxide Allergy Itching Verified 01/02/20 14:33 Home Meds: Home Meds metFORMIN [Glucophage] 1,000 mg PO BIDM 12/22/13 [History] Latanoprost 1 drop DAILY 02/12/19 [History] Meclizine [Antivert] 25 mg PO DAILY 12/20/19 [History] Ibuprofen [Motrin] 800 mg PO QID PRN #30 tab 01/02/20 [Rx] Non-Formulary Medication [NF Drug] 1 each INH BEDTIME 01/02/20 [History] carisoprodoL [Soma] 250 mg PO BID #10 tablet 01/02/20 [Rx] Ondansetron [Zofran ODT] 4 mg PO Q6H PRN #8 tab.dis 04/17/20 [Rx] Past Medical History HEENT History: Reports: Glaucoma, Impaired Vision, Other (See Below) Other HEENT History: wears glasses Cardiovascular History: Reports: High Cholesterol, Hypertension Gastrointestinal History: Reports: GERD Genitourinary History: Reports: None [employer] History: Reports: Musculoskeletal History: Reports: Back Pain, Chronic Psychiatric History: Reports: Depression Endocrine/Metabolic History: Reports: Diabetes, Type II - Infectious Disease History Infectious Disease History: Reports: Chicken Pox, Measles - Past Surgical History HEENT Surgical History: Reports: Tonsillectomy Other HEENT Surgeries/Procedures: nasal surgery x2 Cardiovascular Surgical History: Reports: None GI Surgical History: Reports: Cholecystectomy, Hernia Repair/Other Female Surgical History: Reports: Hysterectomy Endocrine Surgical History: Reports: None Other Musculoskeletal Surgeries/Procedures:: carpal tunnel surgery Social & Family History - Family History Family Medical History: No Pertinent Family History - Caffeine Use Caffeine Use: Reports: Energy Drinks ED ROS GENERAL - Review of Systems Review Of Systems: Comprehensive ROS is negative, except as noted in HPI. ED EXAM, GI/ABD - Physical Exam Exam: See Below (See dictation) Course - Orders/Labs/Meds Orders: Active Orders 24 hr Category Date Time Status CAMPYLOBACTER CULT [MREF] Stat Lab 04/17/20 15:25 Ordered CORONAVIRUS COVID-19 PCR PHL Stat Lab 04/17/20 15:57 Received SHIGA TOXIN 1 & 2 [MREF] Stat Lab 04/17/20 15:25 Ordered STOOL CULTURE/SHIGA TOXIN [MREF] Stat Lab 04/17/20 15:25 Ordered Labs: Laboratory Tests 04/17/20 04/17/20 04/17/20 Range/Units 15:55 15:55 15:57 WBC 6.60 (4.0-11.0) K/uL RBC 4.31 (4.30-5.90) M/uL Hgb 13.3 (12.0-16.0) g/dL Hct 40.7 (36.0-46.0) % MCV 94.4 (80.0-98.0) fL MCH 30.9 (27.0-32.0) pg MCHC 32.7 (31.0-37.0) g/dL RDW Std Deviation 46.6 (28.0-62.0) fl RDW Coeff of Vlad 13 (11.0-15.0) % Plt Count 278 (150-400) K/uL MPV 9.90 (7.40-12.00) fL Neut % (Auto) 64.2 (48.0-80.0) % Lymph % (Auto) 25.8 (16.0-40.0) % [place] % (Auto) 6.5 (0.0-15.0) % Eos % (Auto) 2.9 (0.0-7.0) % Baso % (Auto) 0.6 (0.0-1.5) % Neut # (Auto) 4.2 (1.4-5.7) K/uL Lymph # (Auto) 1.7 (0.6-2.4) K/uL [place] # (Auto) 0.4 (0.0-0.8) K/uL Eos # (Auto) 0.2 (0.0-0.7) K/uL Baso # (Auto) 0.0 (0.0-0.1) K/uL Nucleated RBC % 0.0 /100WBC Nucleated RBCs # 0 K/uL Sodium 140 (136-145) mmol/L Potassium 4.2 (3.5-5.1) mmol/L Chloride 103 (98-107) mmol/L Carbon Dioxide 26.3 (21.0-32.0) mmol/L BUN 23 H (7.0-18.0) mg/dL Creatinine 0.9 (0.6-1.0) mg/dL Est Cr Clr Drug Dosing TNP Estimated GFR (MDRD) > 60.0 ml/min Glucose 122 H (74-106) mg/dL Calcium 9.3 (8.5-10.1) mg/dL Total Bilirubin 0.5 (0.2-1.0) mg/dL AST 28 (15-37) IU/L ALT 46 (14-63) IU/L Alkaline Phosphatase 83 (46-116) U/L Total Protein 7.7 (6.4-8.2) g/dL Albumin 3.9 (3.4-5.0) g/dL Globulin 3.8 (2.6-4.0) g/dL Albumin/Globulin Ratio 1.0 (0.9-1.6) Lipase 319 (73-393) U/L SARS CoV-2 RNA Rapid CARMELA NEGATIVE (NEGATIVE) Meds: Medications Discontinued Medications Generic Name Dose Route Start Last Admin Trade Name Freq PRN Reason Stop Dose Admin Sodium Chloride 1,000 mls @ 999 mls/hr 04/17/20 15:25 04/17/20 15:56 Normal Saline IV 04/17/20 16:25 999 mls/hr STAT ONE Administration Ondansetron HCl 4 mg 04/17/20 15:44 04/17/20 15:56 Zofran IVPUSH 04/17/20 15:45 4 mg ONETIME ONE Administration Departure - Departure Time of Disposition: 17:03 Disposition: Home, Self-Care 01 Clinical Impression: Diarrhea - Discharge Information Prescriptions: Ondansetron [Zofran ODT] 4 mg PO Q6H PRN #8 tab.dis PRN Reason: Nausea Instructions: Diarrhea, Adult, [id number] Referrals: Tyson Leavitt MD [Primary Care Provider] - Forms: ED Department Discharge Additional Instructions: The following information is given to patients seen in the emergency department who are being discharged to home. This information is to outline your options for follow-up care. We provide all patients seen in our emergency department with a follow-up referral. The need for follow-up, as well as the timing and circumstances, are variable depending upon the specifics of your emergency department visit. If you don't have a primary care physician on staff, we will provide you with a referral. We always advise you to contact your personal physician following an emergency department visit to inform them of the circumstance of the visit and for follow-up with them and/or the need for any referrals to a consulting specialist. The emergency department will also refer you to a specialist when appropriate. This referral assures that you have the opportunity for follow-up care with a specialist. All of these measure are taken in an effort to provide you with optimal care, which includes your follow-up. Under all circumstances we always encourage you to contact your private physician who remains a resource for coordinating your care. When calling for follow-up care, please make the office aware that this follow-up is from your recent emergency room visit. If for any reason you are refused follow-up, please contact the [facility] Emergency Department at and asked to speak to the emergency department charge nurse. [facility] [address] [place] [address] [id number] [address] [address] Thank you for choosing the [facility] emergency department in [place] for your medical needs today. It was a pleasure caring for you. Today you were seen in the emergency department for concerns of COVID and diarrhea. 1. Your COVID-19 screening is negative. If you are not in close contact to someone who is positive, you should continue to practice physical distancing and limit your interactions with others as much as possible. You may attend work and attend/perform essential activities if you are not sick. If you continue to feel unwell please stay home. If you are in close contact with someone who tested positive, then you should continue to quarantine until you complete 10 days. COVID-19 testing is not 100% accurate, we did do a SEND OUT TEST which goes to the state lab for further testing. If this is positive they will call you to inform you; this should be done by Saturday. 2. [place] diet; advance as tolerated. (Bananas, rice, toast, applesauce, ect...) Zofran as needed for nausea managment. You can take NyQuil during the evening to help get a restful night sleep. Alternate Tylenol and ibuprofen as needed for pain and fever management. 3. Follow up with your primary care provider for re-evaluation and if your symptoms should worsen, new symptoms develop or you feel like you are not improving you are always welcome to return to the emergency room. - My Orders Last 24 Hours: My Active Orders 04/17/20 15:25 CAMPYLOBACTER CULT [MREF] Stat SHIGA TOXIN 1 & 2 [MREF] Stat STOOL CULTURE/SHIGA TOXIN [MREF] Stat 04/17/20 15:57 CORONAVIRUS COVID-19 PCR PHL Stat - Assessment/Plan Last 24 Hours: My Active Orders 04/17/20 15:25 CAMPYLOBACTER CULT [MREF] Stat SHIGA TOXIN 1 & 2 [MREF] Stat STOOL CULTURE/SHIGA TOXIN [MREF] Stat 04/17/20 15:57 CORONAVIRUS COVID-19 PCR PHL Stat
[2020-04-17 16:32] LABS: BLOOD UREA NITROGEN,BUN 23 mg/dL (7.0-18.0); CARBON DIOXIDE,CO2 26.3 mmol/L (21.0-32.0); CHLORIDE,CL 103 mmol/L (98-107); GLUCOSE RANDOM 122 mg/dL (74-106); LIPASE 319 U/L (73-393); POTASSIUM,K 4.2 mmol/L (3.5-5.1); SODIUM,NA 140 mmol/L (136-145)
[2020-04-17 18:49] VITALS: BP 135/77; PULSE 60
== END 2020-04-17 17:21 | disposition home or self-care (01) ==
LOC: MW.ED 15:03
DX: R19.7 Diarrhea, unspecified (principal); R11.0 Nausea; R53.83 Other fatigue; Z20.828 Contact with and (suspected) exposure to other viral communicable diseases; I10 Essential (primary) hypertension; E11.9 Type 2 diabetes mellitus without complications; Z88.5 Allergy status to narcotic agent; Z88.2 Allergy status to sulfonamides; Z90.49 Acquired absence of other specified parts of digestive tract; Z90.710 Acquired absence of both cervix and uterus; Z79.84 Long term (current) use of oral hypoglycemic drugs; Z79.899 Other long term (current) drug therapy
CPT/HCPCS: 36415; 80053; 83690; 85025; 87635; 96374; 99284; J2405; J7030; 99283; U0002

== ENCOUNTER 2020-07-12 20:27 | Emergency (ER) | payer MEDICAID, OTHER ==
--- NOTE | 2020-07-12 20:37 | EDM.PDOC ---
ED HPI GENERAL MEDICAL PROBLEM - General Chief Complaint: General Stated Complaint: DIZZINES Time Seen by Provider: 07/12/20 20:35 Source of Information: Reports: Patient History Limitations: Reports: No Limitations - History of Present Illness INITIAL COMMENTS - FREE TEXT/NARRATIVE: 55-year-old female with history of UTI, diabetes, vertigo presents feeling dizzy. Since Saturday she has had 4 episodes of acute onset intermittent room spinning sensation, episodes would last about a minute, exacerbated with moving and turning her head to the left. Alleviated with closing her eyes and remaining still. She felt off balance, unsteady, headache, tinnitus, nausea. She also notes myalgia, generalized malaise, dry cough, midsternal burning sensation that started since last Saturday. She has a history of Melvin's esophagitis. She denies vomiting, abdominal pain, shortness of breath, hearing loss, focal numbness or weakness. She took meclizine 2 hours ago. ROS: A 10-point review of systems, other than pertinent positives and negatives as stated per HPI, is otherwise negative Past medical history: No additional pertinent history Past Surgical history: No additional pertinent history Social history: No additional pertinent history Family history: No additional pertinent history PHYSICAL EXAM General: AOx4, GCS = 15, No distress HEENT: dry mucous membrane, fatigable horizontal nystagmus Neck: supple, no meningismus, no Kernig or Brudzinski Cardiac: S1S2 RRR Respiratory: CTAB, no crackles or rales, no wheezing Abdomen: Soft, nontender, no rebound or guarding, nondistended, no pulsatile mass. Back: nontender Musculoskeletal: NVI distally, no deformity Neuro: No focal deficits, CN 2 - 12 WNL. headache Pain Score (Numeric/FACES): 4 - Related Data Allergies Allergy/AdvReac Type Severity Reaction Status Date / Time codeine Allergy Nausea Verified 07/12/20 20:51 Sulfa (Sulfonamide Allergy Itching Verified 07/12/20 20:51 Antibiotics) sulfur dioxide Allergy Itching Verified 07/12/20 20:51 Home Meds: Home Meds metFORMIN [Glucophage] 1,000 mg PO BIDM 12/22/13 [History] Latanoprost 1 drop DAILY 02/12/19 [History] Meclizine [Antivert] 25 mg PO DAILY 12/20/19 [History] Ibuprofen [Motrin] 800 mg PO QID PRN #30 tab 01/02/20 [Rx] Non-Formulary Medication [NF Drug] 1 each INH BEDTIME 01/02/20 [History] carisoprodoL [Soma] 250 mg PO BID #10 tablet 01/02/20 [Rx] Ondansetron [Zofran ODT] 4 mg PO Q6H PRN #8 tab.dis 04/17/20 [Rx] Past Medical History HEENT History: Reports: Glaucoma, Impaired Vision, Other (See Below) Other HEENT History: wears glasses Cardiovascular History: Reports: High Cholesterol, Hypertension Gastrointestinal History: Reports: GERD Genitourinary History: Reports: None 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: Musculoskeletal History: Reports: Back Pain, Chronic Psychiatric History: Reports: Depression Endocrine/Metabolic History: Reports: Diabetes, Type II - Infectious Disease History Infectious Disease History: Reports: Chicken Pox, Measles - Past Surgical History HEENT Surgical History: Reports: Tonsillectomy Other HEENT Surgeries/Procedures: nasal surgery x2 Cardiovascular Surgical History: Reports: None GI Surgical History: Reports: Cholecystectomy, Hernia Repair/Other Female Surgical History: Reports: Hysterectomy Endocrine Surgical History: Reports: None Other Musculoskeletal Surgeries/Procedures:: carpal tunnel surgery Social & Family History - Family History Family Medical History: No Pertinent Family History - Caffeine Use Caffeine Use: Reports: Energy Drinks ED ROS GENERAL - Review of Systems Review Of Systems: See Below (see dictation) ED EXAM, GENERAL - Physical Exam Exam: See Below (see dictation) #1 Interpretation EKG Interpretation Comments: Heart rate = 72 bpm, normal sinus rhythm, normal QRS interval, no STEMI. EKG and rhythm strip interpreted by me at 2045 Course - Vital Signs Last Recorded V/S: Last Vital Signs Temp 97.5 F 07/12/20 20:45 Pulse 75 07/12/20 22:30 Resp 18 07/12/20 22:30 BP 135/77 07/12/20 22:30 Pulse Ox 97 07/12/20 22:30 - Orders/Labs/Meds Orders: Active Orders 24 hr Category Date Time Status Cardiac Monitoring [RC] . DIRECTED Care 07/12/20 20:49 Active EKG Documentation Completion [RC] STAT Care 07/12/20 20:50 Active Pulse Oximetry [RC] ASDIRECTED Care 07/12/20 20:49 Active Sodium Chloride 0.9% [Saline Flush] Med 07/12/20 20:49 Active 10 ml FLUSH ASDIRECTED PRN Sodium Chloride 0.9% [Saline Flush] Med 07/12/20 20:49 Active 2.5 ml FLUSH ASDIRECTED PRN Saline Lock Insert [OM.PC] Stat Oth 07/12/20 20:50 Ordered Medication Orders Sodium Chloride (Saline Flush) 10 ml FLUSH ASDIRECTED PRN PRN Reason: Keep Vein Open Last Admin: 07/12/20 21:10 Dose: 10 ml Documented by: NIMO Sodium Chloride (Saline Flush) 2.5 ml FLUSH ASDIRECTED PRN PRN Reason: Keep Vein Open Last Admin: 07/12/20 21:09 Dose: 2.5 ml Documented by: KLEIJCHELLE Labs: Laboratory Tests 07/12/20 07/12/20 07/12/20 Range/Units 21:05 21:05 21:05 WBC 6.61 (4.0-11.0) K/uL RBC 4.21 L (4.30-5.90) M/uL Hgb 13.0 (12.0-16.0) g/dL Hct 40.2 (36.0-46.0) % MCV 95.5 (80.0-98.0) fL MCH 30.9 (27.0-32.0) pg MCHC 32.3 (31.0-37.0) g/dL RDW Std Deviation 47.3 (28.0-62.0) fl RDW Coeff of Vlad 14 (11.0-15.0) % Plt Count 313 (150-400) K/uL MPV 10.20 (7.40-12.00) fL Neut % (Auto) 59.9 (48.0-80.0) % Lymph % (Auto) 28.7 (16.0-40.0) % [place] % (Auto) 8.0 (0.0-15.0) % Eos % (Auto) 2.9 (0.0-7.0) % Baso % (Auto) 0.5 (0.0-1.5) % Neut # (Auto) 4.0 (1.4-5.7) K/uL Lymph # (Auto) 1.9 (0.6-2.4) K/uL [place] # (Auto) 0.5 (0.0-0.8) K/uL Eos # (Auto) 0.2 (0.0-0.7) K/uL Baso # (Auto) 0.0 (0.0-0.1) K/uL Nucleated RBC % 0.0 /100WBC Nucleated RBCs # 0 K/uL INR 0.94 Sodium 142 (136-145) mmol/L Potassium 4.3 (3.5-5.1) mmol/L Chloride 105 (98-107) mmol/L Carbon Dioxide 26.8 (21.0-32.0) mmol/L BUN 14 (7.0-18.0) mg/dL Creatinine 1.1 H (0.6-1.0) mg/dL Est Cr Clr Drug Dosing 44.63 mL/min Estimated GFR (MDRD) 51.2 ml/min Glucose 119 H (74-106) mg/dL Calcium 9.0 (8.5-10.1) mg/dL Phosphorus 4.1 (2.6-4.7) mg/dL Magnesium 2.1 (1.8-2.4) mg/dL Total Bilirubin 0.2 (0.2-1.0) mg/dL AST 10 L (15-37) IU/L ALT 19 (14-63) IU/L Alkaline Phosphatase 97 (46-116) U/L Troponin I < 0.050 (0.000-0.056) ng/mL Total Protein 7.3 (6.4-8.2) g/dL Albumin 3.6 (3.4-5.0) g/dL Globulin 3.7 (2.6-4.0) g/dL Albumin/Globulin Ratio 1.0 (0.9-1.6) Lipase (73-393) U/L Urine Color Urine Appearance Urine pH (5.0-8.0) Ur Specific [place] (1.001-1.035) Urine Protein (NEGATIVE) mg/dL Urine Glucose (UA) (NEGATIVE) mg/dL Urine Ketones (NEGATIVE) mg/dL Urine Occult Blood (NEGATIVE) Urine Nitrite (NEGATIVE) Urine Bilirubin (NEGATIVE) Urine Urobilinogen (<2.0) EU/dL Ur Leukocyte Esterase (NEGATIVE) Urine RBC (0-2/HPF) Urine WBC (0-5/HPF) Ur Epithelial Cells (NONE-FEW) Urine Bacteria (NEGATIVE) Urine Mucus (NONE-MOD) SARS-CoV-2 RNA (CARMELA) (NEGATIVE) 07/12/20 07/12/20 07/13/20 Range/Units 21:05 22:35 00:10 WBC (4.0-11.0) K/uL RBC (4.30-5.90) M/uL Hgb (12.0-16.0) g/dL Hct (36.0-46.0) % MCV (80.0-98.0) fL MCH (27.0-32.0) pg MCHC (31.0-37.0) g/dL RDW Std Deviation (28.0-62.0) fl RDW Coeff of Vlad (11.0-15.0) % Plt Count (150-400) K/uL MPV (7.40-12.00) fL Neut % (Auto) (48.0-80.0) % Lymph % (Auto) (16.0-40.0) % [place] % (Auto) (0.0-15.0) % Eos % (Auto) (0.0-7.0) % Baso % (Auto) (0.0-1.5) % Neut # (Auto) (1.4-5.7) K/uL Lymph # (Auto) (0.6-2.4) K/uL [place] # (Auto) (0.0-0.8) K/uL Eos # (Auto) (0.0-0.7) K/uL Baso # (Auto) (0.0-0.1) K/uL Nucleated RBC % /100WBC Nucleated RBCs # K/uL INR Sodium (136-145) mmol/L Potassium (3.5-5.1) mmol/L Chloride (98-107) mmol/L Carbon Dioxide (21.0-32.0) mmol/L BUN (7.0-18.0) mg/dL Creatinine (0.6-1.0) mg/dL Est Cr Clr Drug Dosing mL/min Estimated GFR (MDRD) ml/min Glucose (74-106) mg/dL Calcium (8.5-10.1) mg/dL Phosphorus (2.6-4.7) mg/dL Magnesium (1.8-2.4) mg/dL Total Bilirubin (0.2-1.0) mg/dL AST (15-37) IU/L ALT (14-63) IU/L Alkaline Phosphatase (46-116) U/L Troponin I (0.000-0.056) ng/mL Total Protein (6.4-8.2) g/dL Albumin (3.4-5.0) g/dL Globulin (2.6-4.0) g/dL Albumin/Globulin Ratio (0.9-1.6) Lipase 226 (73-393) U/L Urine Color YELLOW Urine Appearance CLEAR Urine pH 6.0 (5.0-8.0) Ur Specific [place] 1.020 (1.001-1.035) Urine Protein NEGATIVE (NEGATIVE) mg/dL Urine Glucose (UA) NEGATIVE (NEGATIVE) mg/dL Urine Ketones NEGATIVE (NEGATIVE) mg/dL Urine Occult Blood NEGATIVE (NEGATIVE) Urine Nitrite NEGATIVE (NEGATIVE) Urine Bilirubin NEGATIVE (NEGATIVE) Urine Urobilinogen 0.2 (<2.0) EU/dL Ur Leukocyte Esterase TRACE H (NEGATIVE) Urine RBC NONE SEEN (0-2/HPF) Urine WBC 0-3 (0-5/HPF) Ur Epithelial Cells RARE (NONE-FEW) Urine Bacteria FEW (NEGATIVE) Urine Mucus LIGHT (NONE-MOD) SARS-CoV-2 RNA (CARMELA) NEGATIVE (NEGATIVE) Meds: Medications Generic Name Dose Route Start Last Admin Trade Name Freq PRN Reason Stop Dose Admin Sodium Chloride 10 ml 07/12/20 20:49 07/12/20 21:10 Saline Flush FLUSH 10 ml ASDIRECTED PRN Administration Keep Vein Open Sodium Chloride 2.5 ml 07/12/20 20:49 07/12/20 21:09 Saline Flush FLUSH 2.5 ml ASDIRECTED PRN Administration Keep Vein Open Discontinued Medications Generic Name Dose Route Start Last Admin Trade Name Freq PRN Reason Stop Dose Admin Al Hydroxide/Mg Hydroxide 15 0 ml 07/12/20 21:01 07/12/20 21:09 ml/ Metoclopramide HCl 5 mg/ PO 07/12/20 21:02 1 each Lidocaine HCl 5 ml ONETIME ONE Administration Diazepam 3 mg 07/12/20 23:49 07/13/20 00:14 Valium IVPUSH 07/12/20 23:50 3 mg ONETIME ONE Administration Diphenhydramine HCl 50 mg 07/12/20 23:50 07/13/20 00:13 Benadryl IVPUSH 07/12/20 23:51 50 mg ONETIME ONE Administration Sodium Chloride 1,000 mls @ 999 mls/hr 07/12/20 20:49 07/12/20 21:00 Normal Saline IV 07/12/20 21:49 999 mls/hr .Bolus ONE Administration Ketorolac Tromethamine 30 mg 07/12/20 23:50 07/13/20 00:13 Toradol IVPUSH 07/12/20 23:51 30 mg ONETIME ONE Administration Meclizine HCl 25 mg 07/12/20 20:49 07/12/20 21:00 Antivert PO 07/12/20 20:50 Not Given ONETIME ONE Metoclopramide HCl 10 mg 07/12/20 23:50 07/13/20 00:13 Reglan IVPUSH 07/12/20 23:51 10 mg ONETIME ONE Administration - Re-Assessments/Exams Free Text/Narrative Re-Assessment/Exam: 07/12/20 23:52 Ordered IV fluids, Reglan, Benadryl, Toradol, Valium 3 mg IV. Covid swab pending. 07/12/20 01:45 After IV medications in the ER, the patient improved and is currently stable for discharge. Her headache is completely resolved, her dizziness improved with IV Valium. I performed a repeat exam and did not appreciate new abnormal findings. Patient exhibits normal vital signs and has a normal gait on road test. I advised the patient to return to the ER for reevaluation if symptoms worsened, including fever, worsening pain, or any other worrisome symptoms. She has meclizine at home. I instructed the patient to follow up with neurology Dr. Mendiola within 2-3 days. MEDICAL DECISION MAKING: I reviewed the patients past medical records, lab and radiographic findings. I discussed the case with the patient. My differential diagnosis included: Vertigo, tinnitus, BPPV. Her symptoms today are consistent with peripheral vertigo. I do not suspect central etiology, stroke, SAH, mening itis, or any severe infection. Patient's dizziness resolved with ED treatment, and there were no other focal neurological findings or additional complaints. Her CT head did not reveal any underlying intracranial process. Pt well appearing, ambulatory on own in ED w/o difficulty. I instructed the patient to return immediately for severe, persistent dizziness, vomiting, fever, focal weakness, change in mental status, headache or other concerns. Pt voiced under- standing and questions answered. I instructed her to continue taking her meclizine as previously prescribed. Departure - Departure Time of Disposition: 01:30 Disposition: Home, Self-Care 01 Condition: Good Clinical Impression: Vertigo - Discharge Information *PRESCRIPTION DRUG MONITORING PROGRAM REVIEWED*: Not Applicable *COPY OF PRESCRIPTION DRUG MONITORING REPORT IN PATIENT SHABNAM: Not Applicable Instructions: How to Perform the Michael Maneuver, Benign Positional Vertigo Referrals: Karen Mendiola MD [Physician] - 3 Days Forms: ED Department Discharge Additional Instructions: The need for follow-up, as well as the timing and circumstances, are variable depending upon the specifics of your emergency department visit. If you don't have a primary care physician on staff, we will provide you with a referral. We always advise you to contact your personal physician following an emergency department visit to inform them of the circumstance of the visit and for follow-up with them and/or the need for any referrals to a consulting specialist. The emergency department will also refer you to a specialist when appropriate. This referral assures that you have the opportunity for follow-up care with a specialist. All of these measure are taken in an effort to provide you with optimal care, which includes your follow-up. Under all circumstances we always encourage you to contact your private physician who remains a resource for coordinating your care. When calling for follow-up care, please make the office aware that this follow-up is from your recent emergency room visit. If for any reason you are refused follow-up, please contact the [facility] Emergency Department at and asked to speak to the emergency department charge nurse. If you do not have a primary care doctor, please follow up with the clinics below within 3-5 days. [facility] - Primary [facility] [address] [place] [id number] [facility] [address] [place] [id number] Sepsis Event Note (ED) - Focused Exam Vital Signs: Vital Signs Temp Pulse Resp BP Pulse Ox 07/12/20 22:30 75 18 135/77 97 07/12/20 20:45 97.5 F 78 18 139/91 H 96 - My Orders Last 24 Hours: My Active Orders 07/12/20 20:49 Cardiac Monitoring [RC] . DIRECTED Pulse Oximetry [RC] ASDIRECTED Sodium Chloride 0.9% [Saline Flush] 10 ml FLUSH ASDIRECTED PRN Sodium Chloride 0.9% [Saline Flush] 2.5 ml FLUSH ASDIRECTED PRN 07/12/20 20:50 EKG Documentation Completion [RC] STAT Saline Lock Insert [OM.PC] Stat - Assessment/Plan Last 24 Hours: My Active Orders 07/12/20 20:49 Cardiac Monitoring [RC] . DIRECTED Pulse Oximetry [RC] ASDIRECTED Sodium Chloride 0.9% [Saline Flush] 10 ml FLUSH ASDIRECTED PRN Sodium Chloride 0.9% [Saline Flush] 2.5 ml FLUSH ASDIRECTED PRN 07/12/20 20:50 EKG Documentation Completion [RC] STAT Saline Lock Insert [OM.PC] Stat
[2020-07-12] MEDS ORDERED: Meclizine 25 MG Tab PO ONE (20:49)
[2020-07-12] MEDS ORDERED: Sodium Chloride 0.9% 1,000 ML IV ONE (20:49)
[2020-07-12] MEDS ORDERED: Sodium Chloride 0.9% 10 ML Syringe FLUSH PRN (20:49)
[2020-07-12] MEDS ORDERED: Sodium Chloride 0.9% 2.5 ML Syringe FLUSH PRN (20:49)
[2020-07-12] MEDS ORDERED: Alum Hydrox/Mag Hydrox/Simeth 15 ML, Metoclopramide 5 MG, Lidocaine 2% 5 ML PO ONE ×3 (21:01)
[2020-07-12 21:42] LABS: BLOOD UREA NITROGEN,BUN 14 mg/dL (7.0-18.0); CARBON DIOXIDE,CO2 26.8 mmol/L (21.0-32.0); CHLORIDE,CL 105 mmol/L (98-107); GLUCOSE RANDOM 119 mg/dL (74-106); POTASSIUM,K 4.3 mmol/L (3.5-5.1); SODIUM,NA 142 mmol/L (136-145)
--- NOTE | 2020-07-12 21:47 | CR ---
INDICATION: Dizziness COMPARISON: none TECHNIQUE: Portable AP erect chest performed at 9:13 p.m. FINDINGS: The lungs are clear. There is no evidence of pneumothorax. The heart, mediastinum and pulmonary vessels are of normal size. There is no evidence of pleural fluid. IMPRESSION: Negative chest. Dictated by Joel Latif MD @ Jul 12 2020 9:45PM Signed by Dr. Joel Latif @ Jul 12 2020 9:46PM
--- NOTE | 2020-07-12 21:57 | CT ---
INDICATION: Dizziness TECHNIQUE: CT head without contrast. COMPARISON: Head CT 01/02/2020 FINDINGS: CSF spaces: Within normal limits for age. Brain parenchyma: No intracranial bleed or mass effect. Suresh-white differentiation is distinct. Moderate low density in the deep white matter. Skull base and calvarium: The visualized paranasal sinuses and mastoid air cells demonstrate no acute or significant findings. The visualized orbits are grossly unremarkable. No skull fractures. IMPRESSION: 1. No evidence of intracranial bleed or mass effect. 2. Nonspecific white matter disease, likely microangiopathy. Please note that all CT scans at this facility use dose modulation, iterative reconstruction, and/or weight-based dosing when appropriate to reduce radiation dose to as low as reasonably achievable. Dictated by Pavan Dudley MD @ Jul 12 2020 9:54PM Signed by Dr. Pavan Dudley @ Jul 12 2020 9:57PM
[2020-07-12] MEDS ORDERED: diphenhydrAMINE 50 MG/ML SDV IVPUSH ONE (23:50)
[2020-07-12] MEDS ORDERED: Ketorolac 30 MG/ML SDV IVPUSH ONE (23:50)
[2020-07-12] MEDS ORDERED: Metoclopramide 10 MG/2 ML SDV IVPUSH ONE (23:50)
[2020-07-13 03:02] VITALS: BP 136/72; PULSE 70
== END 2020-07-13 01:45 | disposition home or self-care (01) ==
LOC: MW.ED 20:27
DX: R42 Dizziness and giddiness (principal); M79.10 Myalgia, unspecified site; R53.81 Other malaise; R05 Cough; R51.9 Headache, unspecified; I10 Essential (primary) hypertension; R11.0 Nausea; E11.9 Type 2 diabetes mellitus without complications; Z88.5 Allergy status to narcotic agent; Z88.2 Allergy status to sulfonamides; Z88.8 Allergy status to other drugs, medicaments and biological substances; Z79.899 Other long term (current) drug therapy; Z20.822 Contact with and (suspected) exposure to COVID-19
CPT/HCPCS: 36415; 70450; 71045; 80053; 81001; 83690; 83735; 84100; 84484; 85025; 85610; 87635; 93005; 96374; 96375; 99284; A9270; J1200; J1885; J2765; J3360; J7030; 93010; U0002

== ENCOUNTER 2021-02-03 14:11 | Emergency (ER) | payer MEDICAID ==
--- NOTE | 2021-02-03 14:16 | EDM.PDOC ---
ED HPI GENERAL MEDICAL PROBLEM - General Chief Complaint: Chest Pain Stated Complaint: CHEST PAIN Time Seen by Provider: 02/03/21 14:15 Source of Information: Reports: Patient History Limitations: Reports: No Limitations - History of Present Illness INITIAL COMMENTS - FREE TEXT/NARRATIVE: 55-year-old female past medical history insulin-dependent diabetes presents for generalized weakness, nausea, abdominal pain radiating to left anterior chest. Patient notes symptoms for the last 3 days. She denies any fevers or shortness of breath. She feels like she needs to throw up but she is unable to. She does have a extensive past surgical history of multiple hernia repairs, hysterectomy. She was seen at the walk-in clinic and had a urinalysis performed which was unremarkable. She notes that she was tested for Covid on Saturday of this week and it was negative. chest Pain Score (Numeric/FACES): 6 - Related Data Allergies Allergy/AdvReac Type Severity Reaction Status Date / Time codeine Allergy Nausea Verified 02/03/21 14:31 Sulfa (Sulfonamide Allergy Itching Verified 02/03/21 14:31 Antibiotics) sulfur dioxide Allergy Itching Verified 02/03/21 14:31 Home Meds: Home Meds metFORMIN [Glucophage] 1,000 mg PO BIDM 12/22/13 [History] Latanoprost 1 drop DAILY 02/12/19 [History] Meclizine [Antivert] 25 mg PO DAILY 12/20/19 [History] Ibuprofen [Motrin] 800 mg PO QID PRN #30 tab 01/02/20 [Rx] Non-Formulary Medication [NF Drug] 1 each INH BEDTIME 01/02/20 [History] carisoprodoL [Soma] 250 mg PO BID #10 tablet 01/02/20 [Rx] Ondansetron [Zofran ODT] 4 mg PO Q6H PRN #8 tab.dis 04/17/20 [Rx] Past Medical History HEENT History: Reports: Glaucoma, Impaired Vision, Other (See Below) Other HEENT History: wears glasses Cardiovascular History: Reports: High Cholesterol, Hypertension Respiratory History: Reports: None Gastrointestinal History: Reports: GERD Genitourinary History: Reports: None 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: Musculoskeletal History: Reports: Back Pain, Chronic Neurological History: Reports: None Psychiatric History: Reports: Depression Endocrine/Metabolic History: Reports: Diabetes, Type II Insulin Pump Model and Financial Analysis Manager: None Hematologic History: Reports: None Immunologic History: Reports: None Dermatologic History: Reports: None - Infectious Disease History Infectious Disease History: Reports: Chicken Pox, Measles - Past Surgical History HEENT Surgical History: Reports: Tonsillectomy Other HEENT Surgeries/Procedures: nasal surgery x2 Cardiovascular Surgical History: Reports: None GI Surgical History: Reports: Cholecystectomy, Hernia Repair/Other Female Surgical History: Reports: Hysterectomy Endocrine Surgical History: Reports: None Other Musculoskeletal Surgeries/Procedures:: carpal tunnel surgery Social & Family History - Family History Family Medical History: No Pertinent Family History - Caffeine Use Caffeine Use: Reports: Coffee ED ROS GENERAL - Review of Systems Review Of Systems: Comprehensive ROS is negative, except as noted in HPI. ED EXAM, GENERAL - Physical Exam Exam: See Below Exam Limited By: No Limitations General Appearance: Alert, WD/WN, No Apparent Distress Ears: Hearing Grossly Normal Throat/Mouth: Normal Voice, No Airway Compromise Head: Atraumatic, Normocephalic Neck: Normal Inspection Respiratory/Chest: No Respiratory Distress, Lungs Clear, Normal Breath Sounds, No Accessory Muscle Use Cardiovascular: Normal Peripheral Pulses, Regular Rate, Rhythm, No Edema GI/Abdominal: Soft, Other (Diffuse abdominal tenderness to palpation without guarding) Extremities: Normal Inspection Neurological: Alert, Normal Cognition, Normal Gait Psychiatric: Normal Affect, Normal Mood Skin Exam: Warm, Dry, Intact, Normal Color #1 Interpretation EKG Date: 02/03/21 Time: 14:15 Rhythm: NSR Rate (Beats/Min): 63 [place]: Normal P-Wave: Present QRS: Normal ST-T: Normal QT: Normal WA/PQ Interval: 139 EKG Interpretation Comments: normal EKG Course - Vital Signs Last Recorded V/S: Last Vital Signs Temp 98.2 F 02/03/21 16:46 Pulse 64 02/03/21 16:46 Resp 18 02/03/21 16:46 BP 127/82 02/03/21 16:46 Pulse Ox 99 02/03/21 16:46 - Orders/Labs/Meds Orders: Active Orders 24 hr Category Date Time Status TROPONIN I [CHEM] Stat Lab 02/03/21 16:49 Stop Req Sodium Chloride 0.9% [Saline Flush] Med 02/03/21 14:23 Active 10 ml FLUSH ASDIRECTED PRN Sodium Chloride 0.9% [Saline Flush] Med 02/03/21 14:23 Active 2.5 ml FLUSH ASDIRECTED PRN Saline Lock Insert [OM.PC] Stat Oth 02/03/21 14:23 Ordered Medication Orders Sodium Chloride (Sodium Chloride 0.9% 10 Ml Syringe) 10 ml FLUSH ASDIRECTED PRN PRN Reason: Keep Vein Open Last Admin: 02/03/21 14:47 Dose: 10 ml Documented by: DANN Sodium Chloride (Sodium Chloride 0.9% 2.5 Ml Syringe) 2.5 ml FLUSH ASDIRECTED PRN PRN Reason: Keep Vein Open Last Admin: 02/03/21 14:47 Dose: 2.5 ml Documented by: DANN Labs: Laboratory Tests 02/03/21 02/03/21 02/03/21 Range/Units 14:25 14:25 14:53 WBC 4.06 (4.0-11.0) K/uL RBC 4.23 L (4.30-5.90) M/uL Hgb 13.0 (12.0-16.0) g/dL Hct 39.3 (36.0-46.0) % MCV 92.9 (80.0-98.0) fL MCH 30.7 (27.0-32.0) pg MCHC 33.1 (31.0-37.0) g/dL RDW Std Deviation 46.0 (28.0-62.0) fl RDW Coeff of Vlad 14 (11.0-15.0) % Plt Count 267 (150-400) K/uL MPV 10.20 (7.40-12.00) fL Neut % (Auto) 52.7 (48.0-80.0) % Lymph % (Auto) 32.5 (16.0-40.0) % [place] % (Auto) 11.8 (0.0-15.0) % Eos % (Auto) 2.5 (0.0-7.0) % Baso % (Auto) 0.5 (0.0-1.5) % Neut # (Auto) 2.1 (1.4-5.7) K/uL Lymph # (Auto) 1.3 (0.6-2.4) K/uL [place] # (Auto) 0.5 (0.0-0.8) K/uL Eos # (Auto) 0.1 (0.0-0.7) K/uL Baso # (Auto) 0.0 (0.0-0.1) K/uL Nucleated RBC % 0.0 /100WBC Nucleated RBCs # 0 K/uL Sodium 141 (136-145) mmol/L Potassium 4.9 (3.5-5.1) mmol/L Chloride 106 (98-107) mmol/L Carbon Dioxide 26.6 (21.0-32.0) mmol/L BUN 17 (7.0-18.0) mg/dL Creatinine 1.0 (0.6-1.0) mg/dL Est Cr Clr Drug Dosing 49.09 mL/min Estimated GFR (MDRD) 57.1 ml/min Glucose 101 (74-106) mg/dL Calcium 8.9 (8.5-10.1) mg/dL Magnesium 1.6 L (1.8-2.4) mg/dL Total Bilirubin 0.4 (0.2-1.0) mg/dL AST 26 (15-37) IU/L ALT 39 (14-63) IU/L Alkaline Phosphatase 93 (46-116) U/L Troponin I < 0.050 (0.000-0.056) ng/mL Total Protein 7.1 (6.4-8.2) g/dL Albumin 3.7 (3.4-5.0) g/dL Globulin 3.4 (2.6-4.0) g/dL Albumin/Globulin Ratio 1.1 (0.9-1.6) Lipase 182 (73-393) U/L SARS-CoV-2 RNA (CARMELA) NEGATIVE (NEGATIVE) Meds: Medications Generic Name Dose Route Start Last Admin Trade Name Freq PRN Reason Stop Dose Admin Sodium Chloride 10 ml 02/03/21 14:23 02/03/21 14:47 Sodium Chloride 0.9% 10 Ml Syringe FLUSH 10 ml ASDIRECTED PRN Administration Keep Vein Open Sodium Chloride 2.5 ml 02/03/21 14:23 02/03/21 14:47 Sodium Chloride 0.9% 2.5 Ml Syringe FLUSH 2.5 ml ASDIRECTED PRN Administration Keep Vein Open Discontinued Medications Generic Name Dose Route Start Last Admin Trade Name Freq PRN Reason Stop Dose Admin Aspirin 324 mg 02/03/21 14:27 02/03/21 14:47 Aspirin 81 Mg Tab.Chew PO 02/03/21 14:28 324 mg ONETIME ONE Administration Sodium Chloride 1,000 mls @ 999 mls/hr 02/03/21 14:23 02/03/21 14:46 Normal Saline IV 02/03/21 15:23 999 mls/hr .Bolus ONE Administration Ondansetron HCl 4 mg 02/03/21 14:23 02/03/21 14:46 Ondansetron 4 Mg/2 Ml Sdv IVPUSH 02/03/21 14:24 4 mg ONETIME ONE Administration - Re-Assessments/Exams Free Text/Narrative Re-Assessment/Exam: 02/03/21 16:53 Labs and imaging are unremarkable. Patient does feel better after IV fluid bolus and medications. She would like a referral to a GI physician. Information was provided. Departure - Departure Time of Disposition: 16:54 Disposition: Home, Self-Care 01 Condition: Good Clinical Impression: Abdominal pain Qualifiers: Abdominal location: generalized Qualified Code(s): R10.84 - Generalized abdominal pain - Discharge Information Instructions: Nonspecific Chest Pain, Adult, [id number], Abdominal Pain, Adult, [id number] Forms: ED Department Discharge Additional Instructions: Please follow-up with a physician for further work-up. Information provided below is for local surgeons that do endoscopies. [facility] General Surgery Professional [address], [address] [place], [place] [id number] [facility] [phone] The following information is given to patients seen in the emergency department who are being discharged to home. This information is to outline your options for follow-up care. We provide all patients seen in our emergency department with a follow-up referral. The need for follow-up, as well as the timing and circumstances, are variable depending upon the specifics of your emergency department visit. If you don't have a primary care physician on staff, we will provide you with a referral. We always advise you to contact your personal physician following an emergency department visit to inform them of the circumstance of the visit and for follow-up with them and/or the need for any referrals to a consulting specialist. The emergency department will also refer you to a specialist when appropriate. This referral assures that you have the opportunity for follow-up care with a specialist. All of these measure are taken in an effort to provide you with optimal care, which includes your follow-up. Under all circumstances we always encourage you to contact your private physician who remains a resource for coordinating your care. When calling for follow-up care, please make the office aware that this follow-up is from your recent emergency room visit. If for any reason you are refused follow-up, please contact the [facility] Emergency Department at and asked to speak to the emergency department charge nurse. Please follow up with your primary care physician. If you do not have a primary care physician, see below: [facility] [address] [place] [id number] [facility] [address] [place] [address] [facility] [address] [place] [id number] Sepsis Event Note (ED) - Focused Exam Vital Signs: Vital Signs Temp Pulse Resp BP Pulse Ox 02/03/21 16:46 98.2 F 64 18 127/82 99 02/03/21 16:00 60 20 116/73 98 02/03/21 15:30 64 18 121/72 97 02/03/21 14:56 54 L 18 118/62 97 02/03/21 14:28 98.7 F 65 18 117/78 98 - My Orders Last 24 Hours: My Active Orders 02/03/21 14:23 Sodium Chloride 0.9% [Saline Flush] 10 ml FLUSH ASDIRECTED PRN Sodium Chloride 0.9% [Saline Flush] 2.5 ml FLUSH ASDIRECTED PRN Saline Lock Insert [OM.PC] Stat 02/03/21 16:49 TROPONIN I [CHEM] Stat - Assessment/Plan Last 24 Hours: My Active Orders 02/03/21 14:23 Sodium Chloride 0.9% [Saline Flush] 10 ml FLUSH ASDIRECTED PRN Sodium Chloride 0.9% [Saline Flush] 2.5 ml FLUSH ASDIRECTED PRN Saline Lock Insert [OM.PC] Stat 02/03/21 16:49 TROPONIN I [CHEM] Stat
[2021-02-03] MEDS ORDERED: Ondansetron 4 MG/2 ML SDV IVPUSH ONE (14:23)
[2021-02-03] MEDS ORDERED: Sodium Chloride 0.9% 1,000 ML IV ONE (14:23)
[2021-02-03] MEDS ORDERED: Sodium Chloride 0.9% 2.5 ML Syringe FLUSH PRN (14:23)
[2021-02-03] MEDS ORDERED: Sodium Chloride 0.9% 10 ML Syringe FLUSH PRN (14:23)
[2021-02-03] MEDS ORDERED: Aspirin 81 MG Tab.Chew PO ONE (14:27)
[2021-02-03 14:58] LABS: BLOOD UREA NITROGEN,BUN 17 mg/dL (7.0-18.0); CARBON DIOXIDE,CO2 26.6 mmol/L (21.0-32.0); CHLORIDE,CL 106 mmol/L (98-107); GLUCOSE RANDOM 101 mg/dL (74-106); LIPASE 182 U/L (73-393); POTASSIUM,K 4.9 mmol/L (3.5-5.1); SODIUM,NA 141 mmol/L (136-145)
--- NOTE | 2021-02-03 15:29 | CR ---
INDICATION: Chest pain, shortness of breath, fatigue, nausea, abdominal pain. TECHNIQUE: Chest 1 view. COMPARISON: Chest radiograph 08/09/2020. FINDINGS: No focal consolidation, pleural effusion, or pneumothorax. Normal heart size and pulmonary vascularity. Degenerative changes of the right shoulder. IMPRESSION: No acute cardiopulmonary findings. Dictated by Margo Ramos MD @ 02/03/2021 3:28:09 PM (Electronically Signed)
--- NOTE | 2021-02-03 16:38 | CT ---
INDICATION: Abdominal pain and nausea. TECHNIQUE: Volumetric helical scanning of the abdomen and pelvis was performed with 100 cc of Isovue 370 contrast material IV. Coronal and sagittal reconstructions were obtained. COMPARISON: Abdomen/pelvis CT of 01/02/2020. FINDINGS: There is no evidence of bowel obstruction or inflammation. The appendix is normal. No free air or free fluid is demonstrated. The liver, bile ducts, spleen, adrenal glands, kidneys and pancreas are negative. No lymphadenopathy or free fluid is evident. Postop changes of total abdominal hysterectomy are demonstrated. The lung bases are clear. Several noncalcified nodules are demonstrated, the largest measuring up to 3 mm. The heart size is normal. Calcified coronary arterial plaque is demonstrated. IMPRESSION: 1. Etiology of nausea and abdominal pain not evident. 2. Post total abdominal hysterectomy. 3. Several noncalcified lung base nodules, the largest measuring up to 3 mm. In accordance with Fleischner Society Guidelines (see below), if the patient is at low risk for lung cancer, no additional evaluation is necessary. If she has a smoking history or is otherwise at high risk for lung cancer, a [address] up chest [address] is recommended. 4. Coronary artery disease. FLEISCHNER SOCIETY GUIDELINES: LOW RISK: - nodule less than 6 mm: No follow-up needed. - nodule 6-8 mm: Initial follow-up CT at 6-12 months and then at 18-24 months if no change. - nodule greater than 8 mm: Follow-up CTs at around 3, 9, and 24 months. Dynamic contrast-enhanced CT, PET, and/or biopsy. MULTIPLE LOW RISK: - nodule less than 6 mm: No follow-up needed. - nodule 6-8 mm: CT at 3-6 months, then consider CT at 18-24 months. - nodule greater than 8 mm: CT at 3-6 months, then consider CT at 18-24 months. HIGH RISK: - nodule less than 6 mm: Follow-up at 12 months. If no change, no further imaging needed. - nodule 6-8 mm: Initial follow-up CT at 3-6 months and then at 9-12 and 24 months if no change. - nodule greater than 8 mm: Follow-up CTs at around 3, 9, and 24 months. Dynamic contrast-enhanced CT, PET, and/or biopsy. MULTIPLE HIGH RISK: - nodule less than 6 mm: Optional CT at 12 months. - nodule 6-8 mm: CT at 3-6 months, then at 18-24 months. - nodule greater than 8 mm: CT at 3-6 months, then at 18-24 months. HIGH RISK is defined as one or more of the following: - at least 20 pack-year smoking history or equivalent second-hand exposure. - personal history of cancer or family history of lung cancer. - occupational exposure (asbestos, beryllium, silica, uranium, radon) - chronic interstitial/fibrotic lung disease. Please note that all CT scans at this facility use dose modulation, iterative reconstruction, and/or weight-based dosing when appropriate to reduce radiation dose to as low as reasonably achievable. Dictated by Dallas Hanson MD @ 02/03/2021 4:37:18 PM (Electronically Signed)
[2021-02-03 17:16] VITALS: BP 144/86; PULSE 65
== END 2021-02-03 17:19 | disposition home or self-care (01) ==
LOC: MW.ED 14:11
DX: R10.84 Generalized abdominal pain (principal); I10 Essential (primary) hypertension; E11.9 Type 2 diabetes mellitus without complications; Z88.5 Allergy status to narcotic agent; Z88.0 Allergy status to penicillin; Z79.84 Long term (current) use of oral hypoglycemic drugs; Z79.899 Other long term (current) drug therapy; Z20.822 Contact with and (suspected) exposure to COVID-19
CPT/HCPCS: 36415; 71045; 74177; 80053; 83690; 83735; 84484; 85025; 87635; 93005; 96374; 99285; A9270; J2405; J7030; U0002

== ENCOUNTER 2021-07-09 19:35 | Emergency (ER) | payer MEDICAID ==
[2021-07-09] MEDS ORDERED: Aspirin 81 MG Tab.Chew PO ONE (19:43)
[2021-07-09] MEDS: Nitroglycerin 0.4 MG Tab.SL SL PRN ×2 (19:54→20:01)
[2021-07-09 20:19] LABS: BLOOD UREA NITROGEN,BUN 24 mg/dL (7.0-18.0); CARBON DIOXIDE,CO2 24.3 mmol/L (21.0-32.0); CHLORIDE,CL 103 mmol/L (98-107); GLUCOSE RANDOM 253 mg/dL (74-106); POTASSIUM,K 4.1 mmol/L (3.5-5.1); SODIUM,NA 138 mmol/L (136-145)
[2021-07-09 20:23] LABS: LIPASE 141 U/L (73-393)
[2021-07-09] MEDS ORDERED: Alum Hydro/Mag Hydro/Simeth XS 15 ML, Metoclopramide 5 MG, Lidocaine 2% 5 ML PO ONE ×3 (20:36)
[2021-07-09 21:30] VITALS: BP 124/68; PULSE 74
== END 2021-07-09 21:30 | disposition home or self-care (01) ==
LOC: MW.ED 19:35
DX: K21.9 Gastro-esophageal reflux disease without esophagitis (principal); E78.00 Pure hypercholesterolemia, unspecified; I10 Essential (primary) hypertension; E11.9 Type 2 diabetes mellitus without complications; Z79.84 Long term (current) use of oral hypoglycemic drugs; Z88.5 Allergy status to narcotic agent; Z88.2 Allergy status to sulfonamides; Z88.8 Allergy status to other drugs, medicaments and biological substances; Z79.899 Other long term (current) drug therapy; Z20.822 Contact with and (suspected) exposure to COVID-19
CPT/HCPCS: 36415; 71045; 80053; 83690; 84443; 84484; 85025; 87635; 93005; 99285; A9270; U0002

== ENCOUNTER 2022-06-09 20:20 | Emergency (ER) | payer MEDICAID, OTHER ==
[2022-06-09] MEDS ORDERED: Sodium Chloride 0.9% 2.5 ML Syringe FLUSH PRN (20:40)
[2022-06-09] MEDS ORDERED: Sodium Chloride 0.9% 10 ML Syringe FLUSH PRN (20:40)
[2022-06-09] MEDS ORDERED: Morphine 2 MG/ML SYRINGE IVPUSH STA (21:26)
[2022-06-09 21:33] LABS: CARBON DIOXIDE,CO2 26.2 mmol/L (21.0-32.0); POTASSIUM,K 4.3 mmol/L (3.5-5.1)
[2022-06-09 21:38] LABS: CORONAVIRUS COVID-19 NAA NEGATIVE (NEGATIVE); INFLUENZA A NAA NEGATIVE (NEGATIVE); INFLUENZA B NAA NEGATIVE (NEGATIVE); RESPIRATORY SYNCYTIAL VIR NAA NEGATIVE (NEGATIVE)
[2022-06-09] MEDS ORDERED: Alum Hydro/Mag Hydro/Simeth XS 15 ML, Lidocaine 2% 5 ML PO STA ×2 (22:05)
[2022-06-09 22:31] VITALS: BP 141/76; PULSE 76
== END 2022-06-09 22:35 | disposition home or self-care (01) ==
LOC: MW.ED 20:20
DX: K21.9 Gastro-esophageal reflux disease without esophagitis (principal); I10 Essential (primary) hypertension; E11.9 Type 2 diabetes mellitus without complications; Z88.5 Allergy status to narcotic agent; Z88.2 Allergy status to sulfonamides; Z79.84 Long term (current) use of oral hypoglycemic drugs; Z79.899 Other long term (current) drug therapy; Z20.822 Contact with and (suspected) exposure to COVID-19
CPT/HCPCS: 0241U; 36415; 71045; 80053; 83880; 84484; 85025; 85379; 96374; 99285; A9270; J2270; J3490; 93010; 99284

== ENCOUNTER 2022-09-10 20:37 | Emergency (ER) | payer MEDICAID ==
[2022-09-10 23:58] VITALS: PULSE 82
[2022-09-11] MEDS ORDERED: Ondansetron 4 MG/2 ML SDV IVPUSH ONE (01:50)
[2022-09-11] MEDS ORDERED: Alum Hydro/Mag Hydro/Simeth XS 15 ML, Lidocaine 2% 5 ML PO ONE ×2 (01:50)
[2022-09-11] MEDS ORDERED: Lactated Ringers 1,000 ML IV SCH (02:00)
[2022-09-11 02:03] VITALS: BP 135/83
== END 2022-09-11 02:13 | disposition left against medical advice (07) ==
LOC: MW.ED 20:37
DX: Z53.21 Procedure and treatment not carried out due to patient leaving prior to being seen by health care provider (principal)

== ENCOUNTER 2022-09-21 09:38 | Day surgery (SDC) | payer MEDICAID ==
[~2022-09-21 09:38] MED LIST: Lactated Ringers 1,000 ML IV SCH
[2022-09-21] MEDS ORDERED: Lidocaine 2% 5 ML SDV ONE (09:59)
[2022-09-21] MEDS ORDERED: Propofol 200 MG/20 ML SDV ONE (10:00)
[2022-09-21] MEDS ORDERED: fentaNYL 100 MCG/2 ML SDV ONE (10:00)
[2022-09-21] MEDS ORDERED: Lactated Ringers 1,000 ML IV SCH (10:45)
[2022-09-21 10:56] VITALS: PULSE 66
[2022-09-21 12:24] VITALS: BP 120/70
== END 2022-09-21 11:20 | disposition home or self-care (01) ==
LOC: MW.SDS 09:38
PROVIDERS: ATTEND Surgery
DX: K29.50 Unspecified chronic gastritis without bleeding (principal); K31.A0 Gastric intestinal metaplasia, unspecified; K21.00 Gastro-esophageal reflux disease with esophagitis, without bleeding; K44.9 Diaphragmatic hernia without obstruction or gangrene; K31.1 Adult hypertrophic pyloric stenosis; K22.70 Barrett's esophagus without dysplasia; K25.9 Gastric ulcer, unspecified as acute or chronic, without hemorrhage or perforation; F41.8 Other specified anxiety disorders; E11.42 Type 2 diabetes mellitus with diabetic polyneuropathy; E78.5 Hyperlipidemia, unspecified; G43.909 Migraine, unspecified, not intractable, without status migrainosus; Z88.5 Allergy status to narcotic agent; Z88.2 Allergy status to sulfonamides; Z87.891 Personal history of nicotine dependence; Z88.8 Allergy status to other drugs, medicaments and biological substances
CPT/HCPCS: 43239; 82947; J2704; J3010; J7120; 00731; J3490

== ENCOUNTER 2023-07-14 21:12 | Emergency (ER) | payer MEDICAID ==
[2023-07-14] MEDS: Dexamethasone 10 MG/ML SDV PO STA (22:02)
[2023-07-14] MEDS: Acetaminophen 500 MG Tab PO ONE (22:02)
[2023-07-14] MEDS: Ibuprofen 600 MG Tab PO ONE (22:03)
[2023-07-14] MEDS: Diazepam 5 MG Tab PO ONE (22:03)
[2023-07-14] MEDS: HYDROmorphone 1 MG/ML Syringe IVPUSH ONE (23:17)
[2023-07-15 00:59] VITALS: BP 152/82; PULSE 80
== END 2023-07-15 00:57 | disposition home or self-care (01) ==
LOC: MW.ED 21:12
DX: M54.50 Low back pain, unspecified (principal); I10 Essential (primary) hypertension; E78.00 Pure hypercholesterolemia, unspecified; K21.9 Gastro-esophageal reflux disease without esophagitis; E11.9 Type 2 diabetes mellitus without complications; E66.9 Obesity, unspecified; Z90.49 Acquired absence of other specified parts of digestive tract; Z79.84 Long term (current) use of oral hypoglycemic drugs; Z79.899 Other long term (current) drug therapy; Z88.5 Allergy status to narcotic agent; Z88.0 Allergy status to penicillin; Z88.8 Allergy status to other drugs, medicaments and biological substances; Z68.33 Body mass index [BMI] 33.0-33.9, adult
CPT/HCPCS: 96374; 99283; A9270; J1170; J8540; 99284